=== PATIENT | female | born 1975 | race Caucasian/White ===

== ENCOUNTER → 2020-03-24 | Outpatient (CLI) | payer OTHER ==
--- NOTE | 2020-03-24 10:07 | US ---
EXAMINATION TYPE: US abdomen complete DATE OF EXAM: 03/24/2020 COMPARISON: CT May 01, 2010 CLINICAL HISTORY: RLQ pain R10.31. gallbladder removed; diabetic, smoker; right lateral abdomen pain EXAM MEASUREMENTS: Liver Length: 17.9 cm Gallbladder Wall: surgically removed CBD: 0.5 cm Spleen: 10.6 cm Right Kidney: 11.0 x 6.5 x 5.0 cm Left Kidney: 11.2 x 6.7 x 6.6 cm Pancreas: hyperechoic Liver: fatty as is hyperechoic to right renal cortex; attenuated posteriorly Evidence for sonographic Schneider's sign: no CBD: wnl Spleen: wnl Right Kidney: No hydronephrosis or masses seen Left Kidney: No hydronephrosis or masses seen Upper IVC: wnl Abd Aorta: size is wnl, intimal wall thickening is noted especially posteriorly Visualized liver remains heterogeneously hyperechoic. Evaluation for focal masses suboptimal due to t he heterogeneity. Suboptimal evaluation of pancreas and images saved due to body habitus. No hydronep hrosis in either kidney. Interval cholecystectomy noted. IMPRESSION: Marked fatty infiltration of liver remains present. No acute findings are identified.
== END | disposition home or self-care (01) ==
LOC: RADUSWWP 08:52
PROVIDERS: ATTEND Family Medicine
DX: K76.0 Fatty (change of) liver, not elsewhere classified (principal)
CPT/HCPCS: 76700

== ENCOUNTER → 2020-04-05 | Outpatient (CLI) | payer OTHER ==
--- NOTE | 2020-04-05 12:26 | US ---
EXAMINATION TYPE: US thyroid st tissue head/neck DATE OF EXAM: 04/05/2020 COMPARISON: NONE CLINICAL HISTORY: 44-year-old female E04.9 Nontoxic goiter. Thyroid nodules GLAND SIZE: Right Lobe: 5.6 x 1.8 x 2.1 cm Overall Parenchyma: Slightly heterogeneous Left Lobe: 5.0 x 1.7 x 1.8 cm Overall Parenchyma: Slightly heterogeneous Isthmus Thickness: .4 cm NODULES RIGHT: # of nodules measured on right: 0 LEFT: # of nodules measured on left: 0 ISTHMUS: # of nodules measured in the isthmus: 0 Bilateral neck scanned, no evidence of lymphadenopathy. IMPRESSION: Borderline to mild thyromegaly. Possible goiter. No discrete nodules.
--- NOTE | 2020-04-06 14:31 | MM ---
Reason for exam: screening (asymptomatic). Last mammogram was performed 9 years and 2 months ago. History: Family history of breast cancer in paternal grandmother. Taking hormonal contraceptives for 10 months. Physical Findings: A clinical breast exam by your physician is recommended on an annual basis and results should be correlated with mammographic findings. MG Screening Mammo w CAD Bilateral CC and MLO view(s) were taken. Prior study comparison: January 24, 2011, bilateral digital screening mammo w/CAD. There are scattered fibroglandular densities. No significant changes when compared with prior studies. ASSESSMENT: Benign, BI-RAD 2 RECOMMENDATION: Routine screening mammogram of both breasts in 1 year.
== END | disposition home or self-care (01) ==
LOC: RADMAMWWP 09:50
PROVIDERS: ATTEND Family Medicine
DX: Z12.31 Encounter for screening mammogram for malignant neoplasm of breast (principal); E04.9 Nontoxic goiter, unspecified
CPT/HCPCS: 76536; 77067

== ENCOUNTER 2020-04-29 06:50 | Day surgery (SDC) | payer OTHER ==
[2020-04-27 13:28] VITALS: BMI 31.8
[~2020-04-29 06:50] MED LIST: LACTATED RINGERS 1,000 ML IV SCH
[2020-04-29 07:23] LABS: Glucose,Whole Blood 191 mg/dL (75-99)
[2020-04-29 07:26] VITALS: TEMP 97.2
[2020-04-29] MEDS ORDERED: LIDOCAINE 1% (10MG/ML) FOR IV START INTRADERMA ONE (07:26)
[2020-04-29] MEDS ORDERED: PROPOFOL 10 MG/ML 20 ML VIAL IV ONE (07:44)
--- NOTE | 2020-04-29 08:01 | P.PCN ---
Date of Procedure: 04/29/20 Description of Procedure: BRIEF HISTORY: Patient is a 45-year-old female presenting evaluation of GERD. Patient currently on omeprazole therapy. She reports symptoms of breakthrough heartburn and epigastric abdominal pain. PROCEDURE PERFORMED: Esophagogastroduodenoscopy with biopsy. PREOPERATIVE DIAGNOSIS: GERD, epigastric abdominal pain. ESTIMATED BLOOD LOSS: Minimal. IV sedation per anesthesia. PROCEDURE: After informed consent was obtained, the patient was brought into the endoscopy unit. IV sedation was administered by Anesthesia under continuous monitoring. Initially the Olympus GIF-190 video endoscope was inserted into the mouth. Esophagus intubated without any difficulty. It was gradually advanced into the stomach and duodenum and carefully examined. The bulb and the second part of the duodenum appeared normal, with biopsies taken. The scope at this time was withdrawn to the stomach, adequately insufflated with air, and upon careful examination, mucosa of the antrum, body, cardia and the fundus appeared normal, except for some mild punctate erythema in the antrum and body suggestive of mild gastritis biopsy taken is some food debris retained in the stomach suggestive of possible gastroparesis. The scope was then withdrawn into the esophagus. The GE junction was located at 38 cm from the incisors and biopsied. The esophagus appeared normal. There were no erosions or ulcerations seen and the patient tolerated the procedure well. IMPRESSION: 1. Mild gastritis. 2. Small amount of retained food debris in the stomach. 3. Biopsies of the duodenum, antrum body and GE junction. RECOMMENDATIONS: The findings of this examination were discussed with the patient. Okay to resume diet. Okay to resume medications. Continue PPI therapy. Follow up in the GI clinic as scheduled. Await pathology from biopsies. Can consider gastric emptying study in the future for further evaluation, however patient without the off of narcotic therapy at that time which can cause a false positive.
[2020-04-29 08:02] VITALS: RESP 18
[2020-04-29 08:15] VITALS: BP 139/87; PULSE 84
== END 2020-04-29 08:45 | disposition home or self-care (01) ==
LOC: ORWHC2ENDO 06:50
PROVIDERS: ATTEND Internal Medicine
DX: K31.9 Disease of stomach and duodenum, unspecified (principal); K29.70 Gastritis, unspecified, without bleeding; K31.89 Other diseases of stomach and duodenum; K21.9 Gastro-esophageal reflux disease without esophagitis; I10 Essential (primary) hypertension; J45.909 Unspecified asthma, uncomplicated; E11.9 Type 2 diabetes mellitus without complications; F17.200 Nicotine dependence, unspecified, uncomplicated; Z90.49 Acquired absence of other specified parts of digestive tract; Z98.890 Other specified postprocedural states; Z79.84 Long term (current) use of oral hypoglycemic drugs; Z79.1 Long term (current) use of non-steroidal anti-inflammatories (NSAID); Z79.891 Long term (current) use of opiate analgesic; Z79.51 Long term (current) use of inhaled steroids; Z79.899 Other long term (current) drug therapy; Z88.5 Allergy status to narcotic agent; Z88.2 Allergy status to sulfonamides
CPT/HCPCS: 81025; 88305; 43239; J2704

== ENCOUNTER → 2021-09-08 | Outpatient (CLI) | payer OTHER ==
[2021-09-08 12:04] VITALS: BP 137/85; PULSE 66; RESP 18; TEMP 98.5
--- NOTE | 2021-09-08 13:36 | P.PAINPG ---
PQRS Measure Charge Sheet Comment: HISTORY OF PRESENT ILLNESS: 46 yr old female as a referral from Dr. Melvin for severe and chronic pain in the cervical, L shoulder and L side of neck secondary to disc bulges and facet arthropathy for evaluation. Patient states her pain level is currently at 8/10 in intensity, throbbing/ burning/ tingling in character that originates from the mid to lower aspect of her cervical spine with radiation to the left side of her neck towards her left shoulder. Pain is provoked with rotation of the neck, hyperextension and overhead reaching and lifting. Pain is alleviated with PT integrated with massage of which she is currently in, ice, medication (Presto, topicals by Dr Villalobos), KT tape on her L shoulder by her therapist, home stretching regimen, repositioning and rest. PT states she suffered an injury swinging a trash bag into a dumpster while at work when she felt a L shoulder "crack." PMH: CAD, Hyperlipidemia, NIDDM Type II, GERD, OA PSH: BL Eye surgery, Cholecystectomy SH: Daily tobacco use, No ETOH use, No illicit drug use. Pt is not . FH: Negative per pt All: See list Meds: See list REVIEW OF ORGAN SYSTEMS: CONSTITUTIONAL: No fevers or chills. No recent weight loss. NEUROLOGICAL: + numbness and tingling along the distal extremities. No seizure disorders or headaches. MUSCULOSKELETAL: + pain PSYCHIATRIC: Denies current depression or suicidal thoughts. Physical Examinations : Constitutional : Cooperative , not in acute distress . Neurologic : Cranial nerve II to XII intact. No focal neurological deficits. Psychiatric : alert & oriented x 3. Matching mood & appropriate affect. Judgment & insight intact. Musculoskeletal : Cervical Spine Motor strength in the deltoid and biceps: Normal right side. Normal Left side Motor strength biceps and the wrist extensors: Normal right side . Normal left side Motor strength in the triceps muscle: Normal right side. Normal left side Deep tendon reflexes: Normal at the biceps. Normal at Brachioradialis. Normal at triceps Vertebral body tenderness to deep palpation over C4, C5 Cervical facet loading test: positive bilaterally Spurling test: positive bilaterally Neck distraction test: positive L Lee sign: positive bilaterally Lumbar spine Motor strength lower extremities ,thigh and legs 5/5 Right side , 5/5 Left side Deep tendon reflexes : Normal Knee Jerk. Normal Ankle Jerk Vertebral body tenderness over Lumbar facet Loading Test: positive Right / positive Left Range of motion of the lumbar spine Flexion 30 degrees, extension 10 degrees Straight Leg Raise test: Left/ Right positive at degree Leelee test: positive right / positive left. Severe tenderness over the Sacroiliac joint on the Right / Left sides Gaenslen test: positive bilaterally Seated flexion test: positive bilaterally. Sacral spine : Severe tenderness over the Sacroiliac joint: right side / left side Range of motion: Flexion of the lumbar spine <60 degrees Range of motion: Extension of the lumbar spine <20 degrees Gaenslen's Test positive Reece's Test positive Leelee test: positive right side / left side Thigh Thrust Test Sacral Thrust Test Imaging: MRI without contrast of the cervical spine reviewed Assessment/ Plan : Cervical disc bulges Recommendation of LANEY C4-C5. May need a series of injections, up to 3 within a 6 mo period, for optimal pain relief. Risks, benefits of procedure discussed and patient verbalized understanding. Denies aspirin or anti- coagulant use. Admits to a medical history of diabetes. Protocol for discontinuation/ continuation of medications landon procedure discussed. All questions answered. I have spent greater than 30 minutes on patient care today. Dr Gomez was available by phone for the evaluation of this patient. The time was used to review the medical records including relevant urine studies and Prescription history (MAPs), review of the available imaging, evaluation and examination of the patient, coordination of care with the medical staff and if applicable referring physicians, as well as creation of the medical record Home Medications: Ambulatory Orders Albuterol Inhaler [Ventolin Hfa Inhaler] 2 puff INHALATION RT-QID PRN 04/27/20 Atorvastatin [Lipitor] 80 mg PO HS 04/27/20 Fenofibrate 160 mg PO HS 04/27/20 Fluticasone Propion/Salmeterol [Advair 250-50 Diskus] 1 inhalation PO BID 04/27/20 Glimepiride [Amaryl] 4 mg PO HS 04/27/20 HYDROcodone/APAP 7.5-325MG [Presto 7.5-325] 1 tab PO BID 04/27/20 Liraglutide [Victoza 2-Ivan] 1.2 mg SQ 1615 04/27/20 Meloxicam [Mobic] 15 mg PO HS 04/27/20 Omeprazole 80 mg PO 1600 04/27/20 Pregabalin [Lyrica] 150 mg PO BID 04/27/20 Valsartan [Diovan] 160 mg PO QAM 04/27/20 Verapamil HCl [Verapamil ER] 120 mg PO QAM 04/27/20 sitaGLIPtin PHOSPHATE [Januvia] 100 mg PO DAILY 04/27/20 tiZANidine [Zanaflex] 4 mg PO BID PRN 04/27/20 Controlled Substance Measures - Controlled Substance Measures Is patient prescribed a controlled substance at discharge?: No
== END ==
LOC: PNWHC3 10:30
PROVIDERS: ATTEND Specialist
DX: M48.02 Spinal stenosis, cervical region (principal); M50.10 Cervical disc disorder with radiculopathy, unspecified cervical region; Z88.2 Allergy status to sulfonamides; Z88.5 Allergy status to narcotic agent
CPT/HCPCS: 99211

== ENCOUNTER 2021-10-18 08:31 | Day surgery (SDC) | payer OTHER ==
[2021-10-14 15:12] VITALS: BMI 31.3
[~2021-10-18 08:31] MED LIST changes: +LIDOCAINE 1% (10MG/ML) FOR IV START INTRADERMA PRN
[2021-10-18 09:07] VITALS: TEMP 97.5
[2021-10-18] MEDS ORDERED: IOPAMIDOL M200 10 ML VIAL ONE (09:10)
[2021-10-18] MEDS ORDERED: MIDAZOLAM 2 MG/2 ML VIAL ONE (09:10)
[2021-10-18] MEDS ORDERED: fentaNYL (PF) 50 MCG/ML 2 ML AMP ONE (09:10)
[2021-10-18] MEDS ORDERED: DEXAMETHASONE SOD PHOSPHATE 10 MG/ML 1 ML VIAL ONE (09:10)
[2021-10-18 09:13] LABS: Glucose,Whole Blood 171 mg/dL (70-110)
--- NOTE | 2021-10-18 09:34 | P.PCN ---
Date of Procedure: 10/18/21 Procedure(s) Performed: . PROCEDURE 1. Cervical epidural steroid injection under fluoroscopic guidance, C4-5 (fluoroscopy images available in the radiology department ) 2. Cervical epidurogram. PREOPERATIVE DIAGNOSIS: 1- Cervical Degenerative Disc Diseases 2- Cervical radiculopathy., 3-cervical spondylosis with cervical Facet arthropathy without myelopathy POSTOPERATIVE DIAGNOSIS: : 1- Cervical Degenerative Disc Diseases , 2- Cervical radiculopathy. 3-,cervical spondylosis with cervical Facet arthropathy without myelopathy ANESTHESIA: moderate sedation, with Versed 2 mg and Fentanyl 100 mcg. Sedation start time : 09:14 Sedation end time : 09:31 EBL 0 PROCEDURE INDICATION: The patient with neck pain and radiculitis unresponsive to conservative treatment consents for procedure. PROCEDURE DESCRIPTION / TECHNIQUE: The patient was seen and identified in the preoperative area. Risks, benefits, complications, including but not limited to infections ,bleeding , allergic reactions to the medications ,and not complete pain releife, and alternatives were discussed with the patient, the patient agreed to proceed with the procedure and signed the consent. Patient was taken to the OR and time out was completed. The patient was placed in the prone position on the procedure table. A pillow was placed under the patients chest to increase the cervical interlaminar space. The cervical area was prepped and draped in the usual sterile fashion. Vital signs were closely monitored during the procedure. Conscious sedation was used during the procedure to decrease patients anxiety. Using anterior-posterior fluoroscopy, the C4-5interlaminar space was identified and the skin over this site was marked and then infiltrated with 1% lidocaine subcutaneously. Subsequently, a 20-gauge 3-1/2-inch Tuohy epidural needle was inserted and advanced toward the epidural space by means of the ``hanging-drop technique and guided by AP and lateral fluoroscopy. The correct needle position in the epidural space was verified with the injection of 2 mL of the water soluble contrast dye Isovue-200 and observing an excellent epidurogram with the epidural spread of the dye, after negative aspiration for blood and CSF and in the absence of paresthesias. then, mixture containing 15 mg Dexamethasone and 2 ml of preservative-free normal saline injected and a washout of epidurogram was seen. Needle was withdrawn intact, skin was cleansed, and bandages were applied. Complications= none. Disposition= patient was placed in supine position and transferred to the recovery room area in stable condition and there was no evidence of upper or lower extremity motor or sensory deficit after the procedure patient was discharged from recovery room after discharge criteria met and home discharge instructions was given by the staff and patient will follow with the pain clinic in 2-4 weeks
[2021-10-18] MEDS ORDERED: IV FLUID CONTINUATION 1,000 ML IV ONE (09:42)
--- NOTE | 2021-10-18 10:03 | FL ---
Fluoroscopy INDICATION: Pain FINDINGS: Fluoroscopy time: 5 seconds. Images obtained: 4. IMPRESSIONS: 1. Documentation of fluoroscopy.
[2021-10-18 10:17] VITALS: BP 139/85; PULSE 85; RESP 15
== END 2021-10-18 10:25 | disposition home or self-care (01) ==
LOC: ORPAIN 08:31
PROVIDERS: ATTEND Specialist
DX: M50.10 Cervical disc disorder with radiculopathy, unspecified cervical region (principal); M47.22 Other spondylosis with radiculopathy, cervical region; Z88.2 Allergy status to sulfonamides; Z88.3 Allergy status to other anti-infective agents; Z88.8 Allergy status to other drugs, medicaments and biological substances; Z79.51 Long term (current) use of inhaled steroids; Z79.899 Other long term (current) drug therapy; Z79.1 Long term (current) use of non-steroidal anti-inflammatories (NSAID); Z79.84 Long term (current) use of oral hypoglycemic drugs; F17.200 Nicotine dependence, unspecified, uncomplicated; Z82.49 Family history of ischemic heart disease and other diseases of the circulatory system
CPT/HCPCS: 81025; 62321; J2250; J1100; J3010; Q9966; 99152

== ENCOUNTER 2022-01-13 10:55 | Day surgery (SDC) | payer OTHER ==
[2022-01-13 11:25] VITALS: RESP 18; TEMP 96.9
[2022-01-13] MEDS ORDERED: MIDAZOLAM 2 MG/2 ML VIAL ONE (11:33)
[2022-01-13] MEDS ORDERED: fentaNYL (PF) 50 MCG/ML 2 ML AMP ONE (11:33)
[2022-01-13] MEDS ORDERED: ROPIVACAINE 5 MG/ML 20 ML AMPULE ONE (11:34)
[2022-01-13] MEDS ORDERED: methylPREDNISolone ACETATE 40 MG/ML 1 ML VIAL ONE (11:34)
[2022-01-13 11:37] LABS: Glucose,Whole Blood 110 mg/dL (70-110)
--- NOTE | 2022-01-13 11:56 | P.PCN ---
Date of Procedure: 01/13/22 Procedure(s) Performed: PREOPERATIVE DIAGNOSIS: 1-Cervical Spondylosis with Facet Arthropathy.without myelopathy. 2-cervical degenerative disc disease POSTOPERATIVE DIAGNOSIS: Same as preoperative diagnosis. PROCEDURES: Diagnostic Left C4 , C5 , and C6 medial branch blocks, with fluo roscopic guidance (fluoroscopy images available in radiology department ) ( to target the facet joint at Left C4- 5 , C5- 6 ) ANESTHESIA: Monitored anesthesia care as per anesthesia department . EBL: Minimal PROCEDURE INDICATION: The patient with neck pain secondary to cervical arthropathy unresponsive to more conservative treatments. PROCEDURE DESCRIPTION / TECHNIQUE: The patient was seen and identified in the preoperative area. Risks, benefits, complications, and alternatives were discussed with the patient, the patient agreed to proceed with the procedure and signed the consent. IV was started. Vital signs remained stable throughout the procedure. Patient was taken to the OR and time out was completed. The patient was placed in the Lateral position on the procedure table.( left side up ). The cervical area was prepped and draped in the usual sterile fashion. Critical pause was taken. Vital signs were closely monitored during the procedure. Conscious sedation was used during the procedure to decrease patients anxiety. Using cross-table lateral fluoroscopy, the centroid of the trapezoid of Left C4 , C5 and C6, was identified, marked, and localized with 1% lidocaine 1 ml at each level for skin and Sub Q infiltrations . Subsequently, a 25 G 3spinal needle was advanced guided by fluoroscopy to the centroid of the trapezoid of Left C4 , C5, C6 . [place] tip position was confirmed at the centroid of the trapezoids of Left C4 , C5 ,C6 with anteroposterior fluoroscopy. Subsequently, 1.5 ml of preservative-free Ropivacaine 0.5% mixed with Depo-Medrol 40 mg and half ml of the mixture was injected after negative aspiration for blood and CSF. [place] was then removed intact . COMPLICATIONS: No acute complications. COMMENTS: DISPOSITION / PLANS: The patient was placed in a supine position and transferred to the recovery area in a stable condition for observation and was discharged from the recovery room after meeting discharge criteria. Home discharge instructions given to the patient by the staff. The patient was reexamined prior to discharge. The patient will schedule a follow up in the clinic in 2-4 weeks.
[2022-01-13] MEDS ORDERED: IV FLUID CONTINUATION 1,000 ML IV ONE (12:01)
--- NOTE | 2022-01-13 12:07 | FL ---
Fluoroscopy History: PAIN 10 SEC FL
[2022-01-13 12:14] VITALS: BP 130/81; PULSE 71
[2022-01-13 12:24] LABS: Glucose,Whole Blood 101 mg/dL (70-110)
== END 2022-01-13 12:30 | disposition home or self-care (01) ==
LOC: ORPAIN 10:55
PROVIDERS: ATTEND Specialist
DX: M50.322 Other cervical disc degeneration at C5-C6 level (principal); M47.812 Spondylosis without myelopathy or radiculopathy, cervical region; I10 Essential (primary) hypertension; E78.5 Hyperlipidemia, unspecified; J45.909 Unspecified asthma, uncomplicated; F17.200 Nicotine dependence, unspecified, uncomplicated; G43.909 Migraine, unspecified, not intractable, without status migrainosus; K21.9 Gastro-esophageal reflux disease without esophagitis; Z79.899 Other long term (current) drug therapy; Z88.5 Allergy status to narcotic agent
CPT/HCPCS: 81025; 64490; 64491; J2250; J1030; J3010; J2795

== ENCOUNTER 2022-03-03 08:04 | Day surgery (SDC) | payer OTHER ==
[2022-03-01 15:58] VITALS: BMI 31.8
[2022-03-03 08:55] VITALS: TEMP 96.8
[2022-03-03 09:07] LABS: Glucose,Whole Blood 179 mg/dL (70-110)
[2022-03-03] MEDS ORDERED: LACTATED RINGERS 1,000 ML IV ONE ×2 (09:07→10:10)
[2022-03-03] MEDS ORDERED: MIDAZOLAM 2 MG/2 ML VIAL ONE (09:27)
[2022-03-03] MEDS ORDERED: DEXAMETHASONE SOD PHOSPHATE 10 MG/ML 1 ML VIAL ONE (09:27)
[2022-03-03] MEDS ORDERED: fentaNYL (PF) 50 MCG/ML 2 ML AMP ONE (09:27)
[2022-03-03] MEDS ORDERED: ROPIVACAINE 5 MG/ML 20 ML AMPULE ONE (09:27)
[2022-03-03] MEDS ORDERED: LACTATED RINGERS 1,000 ML IV SCH (09:30)
--- NOTE | 2022-03-03 09:55 | P.PCN ---
Date of Procedure: 03/03/22 Description of Procedure: PREOPERATIVE DIAGNOSIS: Cervical Facet syndrome /cervical spondylosis. POSTOPERATIVE DIAGNOSIS: Cervical Facet syndrome /cervical spondylosis. PROCEDURES: Left side cervical C4-C5, and C5-C6 medial branch injections, with fluoroscopic guidance, SURGEON: Nasim Harris ANESTHESIA: 3ml of Local lidocaine 1% , and IV sedation with : versed 3mg, and Fentanyl 100 mcg EBL: None Specimen removed: None Fluoroscopic image: Saved to electronic medical records. PROCEDURE INDICATION: Patient had chronic neck pain. He tried conservative therapy with minimal benefits. Came here for intervention procedure. PROCEDURE DESCRIPTION: The patient was seen and identified in the preoperative area. Risks, benefits, complications, and alternatives were discussed with the patient. The patient agreed to pursue with the procedure and signed the consent. IV was started and vital signs were stable. Patient was taken to the procedure room and time out was completed. The patient was placed in the prone position on the procedure table and cervical area was prepped with ChloraPrep 1 and draped in the usual sterile fashion. Critical pause was taken. Vital signs were closely monitored during the procedure. Using AP fluoroscopy, left side side the waists of lateral margins of C4, C5, and C6 were identified and localized with 1% lidocaine. We used 25-gauge 3-1/2 inch spinal needles 3 used for the procedure. Using the posterior approach, spinal cannulas were guided by anterior posterior fluoroscopy to the waists of the lateral masses of C4, C5, and C6. Needle tip position was confirmed close to centroid of the trapezoids of C4, C5, and C6 with lateral fluoroscopy. After negative aspiration of CSF and blood and with no paresthesias 0.5 mL of block solution injected at each site. Block solution contained 10 MG of dexamethasone and 1 mL of preservative-free ropivacaine 0.5%. [place] were removed intact. [place] removed intact. Skin was cleansed and bandages were applied. COMPLICATIONS: None. DISPOSITION / PLANS: The patient was placed in a supine position and transferred to the recovery area in a stable condition for observation and was discharged from the recovery room after meeting discharge criteria. Home discharge instructions given to the patient by the staff. The patient was reexamined prior to discharge. Scheduled to follow up with the pain clinic in 2- 4 weeks duration.
[2022-03-03 10:01] VITALS: RESP 16
[2022-03-03 10:10] VITALS: BP 133/62; PULSE 69
--- NOTE | 2022-03-03 10:17 | FL ---
EXAMINATION TYPE: FL guided pain mgmt statistic DATE OF EXAM: 03/03/2022 CLINICAL HISTORY: Neck pain. TECHNIQUE: Fluoroscopy. COMPARISON: None. FINDINGS: Fluoroscopic guidance was provided during pain relief procedure performed by Dr. Harris. A total of 32 seconds of fluoroscopic time was utilized during the procedure and 2 spot images are a cquired. Images acquired shows needle localization at several levels in the cervical spine. IMPRESSION: As Above.
== END 2022-03-03 10:27 | disposition home or self-care (01) ==
LOC: ORPAIN 08:04
DX: M47.812 Spondylosis without myelopathy or radiculopathy, cervical region (principal); G89.29 Other chronic pain; E78.00 Pure hypercholesterolemia, unspecified; E11.9 Type 2 diabetes mellitus without complications; I10 Essential (primary) hypertension; M19.90 Unspecified osteoarthritis, unspecified site; J45.909 Unspecified asthma, uncomplicated; K21.9 Gastro-esophageal reflux disease without esophagitis; Z88.2 Allergy status to sulfonamides; Z88.5 Allergy status to narcotic agent; Z88.8 Allergy status to other drugs, medicaments and biological substances; Z79.51 Long term (current) use of inhaled steroids; Z79.84 Long term (current) use of oral hypoglycemic drugs; Z79.899 Other long term (current) drug therapy
CPT/HCPCS: 81025; 64490; 64491; J2250; J1100; J3010; J2795

== ENCOUNTER → 2022-04-05 | Outpatient (CLI) | payer OTHER ==
[2022-04-05 13:17] VITALS: BP 136/57; PULSE 85; RESP 16; TEMP 98.1
--- NOTE | 2022-04-05 15:08 | P.PAINPG ---
PQRS Measure Charge Sheet Comment: A 46 yr old female with a history of severe and chronic neck pain secondary to cervical DDD and spondylosis with facet arthropathy without myelopathy presents today for evaluation s/p L facet block of the medial branches C4-C5, C5-C6 #2. Pt states she experienced 100 % pain relief x 1 hr s/p procedure. Pain level is provoked at 9 /10 in intensity, constant, localized in the cervical spine, burning, sharp in character w shooting towards the LUE. Pain is provoked by PT in Oct 2020 without relief. Pain is alleviated with home stretches daily, ice, meds (Caputa, Lyrica from Dr Fuentes), use of a cervical collar as needed, repositioning and rest. Interventional pain procedures completed include L MBB C4-C6 x2 Patient is currently on Caputa, Lyrica from Dr Fuentes Patient denies any side effects of the medication(s), denies excessive drowsiness or sleepiness, denies suicidal ideation and reports that the current pain medication is helping to control the pain and improve activities of daily living. Patient denies any motor or sensory deficits. Patient denies any fever or night sweats, denies any change in the bowel movements or urination. Physical Examination: -Constitutional: Cooperative. Not in acute distress . - Neurologic: Cranial nerve II to XII intact. No focal neurological deficits. - Psychatric: Alert & oriented x 3. Matching mood & appropriate affect. Judgment and insight intact. - Musculoskeletal: Cervical spine: Muscle bulk/ tone/ strength in the bilateral upper extremities normal Vertebral body tenderness to palpation over Spurling test positive Distraction test positive Facet loading test positive TTP over R C4-C5, C5-C6 facets Thoracic spine Muscle bulk / tone/ strength in the bilateral paraspinal muscles normal Vertebral body tender to palpation over Facet loading test positive Lumbar spine: Motor bulk/ tone/ strength lower extremities , thigh and legs : 5/5 Deep tendon reflexes : Normal Knee Jerk. Normal Ankle Jerk . Vertebral body tenderness to palpation over Lumbar Facet Loading Test positive Straight Leg Raise: positive at 30 degrees right side/ left side Gaenslen's Test positive Sacral spine : Severe tenderness over the Sacroiliac joint: right side / left side Range of motion: Flexion of the lumbar spine <60 degrees Range of motion: Extension of the lumbar spine <20 degrees Gaenslen's Test positive Leelee test: positive right side / left side Thigh Thrust Test Sacral Thrust Test Assessment and plan: Chronic neck pain secondary to cervical DDD, spondylosis with facet arthropathy without myelopathy Recommendation of R RFA C4-C5, C5-C6. Pt is disinterested in pursing an RFA at this time. She will rely on medication management and may return to our clinic on an as needed basis. All patient questions answered I have spent less than 30 minutes on patient care today. Dr Gomez was available by phone for the evaluation of this patient. The time was used to review the medical records including relevant urine studies and Prescription history (MAPs), review of the available imaging, evaluation and examination of the patient, coordination of care with the medical staff and if applicable referring physicians, as well as creation of the medical record PQRS Narrative: Hx Alcohol Use (MH) No Home Medications: Ambulatory Orders Albuterol Inhaler [Ventolin Hfa Inhaler] 2 puff INHALATION QID 04/27/20 Atorvastatin [Lipitor] 80 mg PO HS 04/27/20 Glimepiride [Amaryl] 8 mg PO HS 04/27/20 Liraglutide [Victoza 2-Ivan] 1.8 mg SQ 1615 04/27/20 Meloxicam [Mobic] 15 mg PO HS 04/27/20 Pregabalin [Lyrica] 150 mg PO BID 04/27/20 Valsartan [Diovan] 160 mg PO QAM 04/27/20 Verapamil HCl [Verapamil ER] 120 mg PO QAM 04/27/20 tiZANidine [Zanaflex] 4 mg PO BID PRN 04/27/20 Ergocalciferol [Vitamin D2 (1250 Mcg = 09062 Iu)] 1,250 mcg PO WE 10/14/21 Dulaglutide [Trulicity] 0.75 mg SQ DAILY 11/10/21 Montelukast [Singulair] 10 mg PO DAILY 11/10/21 DULoxetine HCL [Cymbalta] 30 mg PO DAILY 01/11/22 Hydrocodone/Acetaminophen [Hydrocodon-Acetaminophn 10-325] 1 each PO BID 01/11/22 Pantoprazole [Protonix] 40 mg PO DAILY 01/11/22 Pioglitazone [Actos] 45 mg PO DAILY 03/01/22 Controlled Substance Measures - Controlled Substance Measures Is patient prescribed a controlled substance at discharge?: No
== END ==
LOC: PNWHC3 10:46
PROVIDERS: ATTEND Specialist
DX: M47.812 Spondylosis without myelopathy or radiculopathy, cervical region (principal); M50.30 Other cervical disc degeneration, unspecified cervical region; Z88.5 Allergy status to narcotic agent; Z88.2 Allergy status to sulfonamides
CPT/HCPCS: 99211

== ENCOUNTER → 2022-04-07 | Outpatient (CLI) | payer OTHER ==
--- NOTE | 2022-04-07 15:34 | XR ---
EXAMINATION TYPE: XR chest 2V DATE OF EXAM: 04/07/2022 3:30 PM COMPARISON: Chest radiographs from 04/07/2013. TECHNIQUE: XR chest 2V Frontal and lateral views of the chest. CLINICAL INDICATION:Female, 46 years old with history of J449; FINDINGS: Lungs/Pleura: There is no evidence of pleural effusion, focal consolidation, or pneumothorax. Pulmonary vascularity: Unremarkable. Heart/mediastinum: Cardiomediastinal silhouette is unremarkable. Musculoskeletal: No acute osseous pathology. IMPRESSION: No acute cardiopulmonary disease/process. No significant change from prior examination.
--- NOTE | 2022-04-10 08:57 | MM ---
Reason for Exam: Screening (asymptomatic). Last mammogram was performed 2 year(s) and 0 month(s) ago. Patient History: Menarche at age 10. First Full-Term at age 19. Patient has history of breast feeding. Currently using Hormonal Contraceptives, for 10 months. Paternal grandmother had breast cancer. Risk Values: Mary Ann 5 year model risk: 0.8%. NCI Lifetime model risk: 8.3%. Prior Study Comparison: 01/24/2011 Bilateral Screening Mammogram, [facility]. 04/05/2020 Bilateral Screening Mammogram, [facility]. Tissue Density: There are scattered fibroglandular densities. Findings: Analyzed By CAD. There is no suspicious group of microcalcifications or new suspicious mass in either breast. Stable benign calcification within the right breast. Overall Assessment: Benign, BI-RAD 2 Management: Screening Mammogram of both breasts in 1 year. A clinical breast exam by your physician is recommended on an annual basis and results should be correlated with mammographic findings. Electronically signed and approved by: Mikel Cordon D.O.
== END | disposition home or self-care (01) ==
LOC: RADMAMWWP 14:50
PROVIDERS: ATTEND Family Medicine
DX: Z12.31 Encounter for screening mammogram for malignant neoplasm of breast (principal); J44.9 Chronic obstructive pulmonary disease, unspecified; Z80.3 Family history of malignant neoplasm of breast
CPT/HCPCS: 71046; 77067

== ENCOUNTER → 2022-06-01 | Outpatient (CLI) | payer OTHER ==
--- NOTE | 2022-06-01 17:05 | MR ---
EXAMINATION TYPE: MR cervical spine wo con DATE OF EXAM: 06/01/2022 INDICATION: Patient age:Female; 47 years old; Reason for study: M47.22 SPONDYLOSIS WITH RADICULOPATHY, CERVICAL R; PHH. NECK PAIN, CAN'T LIFT LT A RM, TINGLING LT ARM, INJURED AT WORK COMPARISON: None. TECHNIQUE: Multi planar, multi sequence imaging was performed utilizing: T1-weighted, T2-weighted, an d turbo inversion recovery imaging of the cervical spine. IV Contrast: None FINDINGS: Alignment: The cervical vertebral bodies have preserved heights. Alignment is within normal limits gi tano patient positioning. Bones: Bone signal is within normal limits. Multilevel mild osteophyte formation with uncovertebral f acet joint arthropathy. Cord: The spinal cord is unremarkable with regards to their signal intensity and morphology. Discs: Intervertebral disc signal is maintained. C2-C3: No significant disc pathology. The spinal canal is patent. No neural foraminal stenosis. C3-C4: No significant disc pathology. The spinal canal is patent. No neural foraminal stenosis. C4-C5: A disc osteophyte complex is present which minimally narrows the ventral subarachnoid space. No neural foraminal stenosis. C5-C6: No significant disc pathology. The spinal canal is patent. No neural foraminal stenosis. C6-C7: No significant disc pathology. The spinal canal is patent. No neural foraminal stenosis. C7-T1: No significant disc pathology. The spinal canal is patent. No neural foraminal stenosis. Other: None. IMPRESSION: 1. No evidence for disc herniation or significant spinal canal stenosis. No evidence for significant neural foraminal stenosis. The neural foramen bilaterally at levels of the cervical spine are patent. Consider MRI left shoulder for evaluation of the rotator cuff as clinically warranted. 2. Minimal disc degeneration with associated osteoarthritic changes.
== END | disposition home or self-care (01) ==
LOC: RADMRIMAIN 15:54
PROVIDERS: ATTEND Nurse Practitioner Family
DX: M47.22 Other spondylosis with radiculopathy, cervical region (principal); M50.121 Cervical disc disorder at C4-C5 level with radiculopathy; M99.71 Connective tissue and disc stenosis of intervertebral foramina of cervical region
CPT/HCPCS: 72141

== ENCOUNTER → 2022-07-10 | Outpatient (CLI) | payer OTHER ==
--- NOTE | 2022-07-10 10:33 | CA ---
Transthoracic Echo Report Name: Mindy Fernandez Age: 47 Gender: F : 1975 Exam Date: 07/10/2022 08:41 Exam Location: [place] [facility] Ht (in): 67 Wt (lb): 203 Ordering Physician: Jaxson Brown DO Attending/Referring Phys: Jaxson Brown DO Ambulance Dispatcher Nitish Block [facility] Procedure CPT: Indications: R07.9 CHEST PAIN Cardiac Hx: HTN; CP; DM; High Chol; Obesity Technical Quality: Fair Contrast 1: Total Dose (mL): Contrast 2: Total Dose (mL): MEASUREMENTS (Male / Female) Normal Values 2D ECHO LV Diastolic Diameter PLAX 4.1 cm 4.2 - 5.9 / 3.9 - 5.3 cm LV Systolic Diameter PLAX 3.0 cm LV Fractional Shortening PLAX 28.0 % IVS Diastolic Thickness 1.1 cm 0.6 - 1.0 / 0.6 - 0.9 cm IVS Systolic Thickness 1.5 cm LVPW Diastolic Thickness 1.3 cm 0.6 - 1.0 / 0.6 - 0.9 cm LVPW Systolic Thickness 1.4 cm LV Relative Wall Thickness 0.6 RV Internal Dim ED PLAX 3.0 cm LVOT Diameter 1.8 cm Aortic Root Diameter 2.3 cm LA Systolic Diameter LX 2.5 cm 3.0 - 4.0 / 2.7 - 3.8 cm LA Ao Ratio 1.1 LV Diastolic Volume MOD BP 63.1 cm??? 67 - 155 / 56 - 104 cm??? LV Systolic Volume MOD BP 30.3 cm??? 22 - 58 / 19 - 49 cm??? LV Ejection Fraction MOD BP 52.0 % >= 55 % LV Stroke Volume MOD BP 32.8 cm??? LV Diastolic Volume MOD 4C 69.1 cm??? LV Systolic Volume MOD 4C 29.5 cm??? LV Ejection Fraction MOD 4C 57.3 % LV Stroke Volume MOD 4C 39.6 cm??? LV Diastolic Length 4C 7.9 cm LV Systolic Length 4C 6.1 cm LV Diastolic Volume MOD 2C 49.6 cm??? LV Systolic Volume MOD 2C 30.5 cm??? LV Ejection Fraction MOD 2C 38.4 % LV Stroke Volume MOD 2C 19.0 cm??? LV Diastolic Length 2C 6.8 cm LV Systolic Length 2C 6.0 cm M-MODE Aortic Root Diameter MM 2.6 cm LA Systolic Diameter MM 3.3 cm LA Ao Ratio MM 1.3 MV E Point Septal Separation 0.5 cm AV Cusp Separation MM 1.4 cm DOPPLER AV Peak Velocity 183.6 cm/s AV Peak Gradient 13.5 mmHg LVOT Peak Velocity 108.6 cm/s LVOT Peak Gradient 4.7 mmHg AV Area Cont Eq pk 1.5 cm??? MV Deceleration [place] 282.3 cm/s??? Mitral E Point Velocity 66.5 cm/s Mitral A Point Velocity 73.4 cm/s Mitral E to A Ratio 0.9 MV Deceleration Time 235.6 ms MV E' Velocity 7.3 cm/s Mitral E to MV E' Ratio 9.2 TR Peak Velocity 247.5 cm/s TR Peak Gradient 24.5 mmHg Right Ventricular Systolic Press 34.5 mmHg PV Peak Velocity 109.4 cm/s PV Peak Gradient 4.8 mmHg FINDINGS Left Ventricle Left ventricular ejection fraction is estimated at 55-60%. borderline left ventricular hypertrophy. Grade 1 diastolic dysfunction. Normal systolic function. Right Ventricle Normal right ventricular size and function. RVSP- 35 mm Hg. Right Atrium Normal right atrial size. Left Atrium Mild left atrial dilatation. Mitral Valve Structurally normal mitral valve. Mild mitral regurgitation. Aortic Valve Trileaflet aortic valve. Tricuspid Valve [id number] tricuspid regurgitation. Pulmonic Valve Structurally normal pulmonic valve. Pericardium Normal pericardium. No pericardial effusion. Aorta Normal size aortic root and proximal ascending aorta. CONCLUSIONS Normal LV systolic function Mild mitral regurgitation Mild to moderate tricuspid regurgitation Mild pulmonary hypertension Previewed by: Dr. Henry Taveras MD (Electronically Signed) Final Date: 10 July 2022 10:32
--- NOTE | 2022-07-11 10:20 | CA ---
Exercise Stress Test Report Name: Mindy Fernandez Exam Date: 07/10/2022 09:33 Exam Location: [place] Stress Ht (in): 67 Wt (lb): 203 BSA: 2.03 Ordering Phys: Jaxson Brown DO Referring Phys: Jaxson Brown DO Technologist: Farooq Peguero Age: 47 Gender: F : 1975 Procedure CPT: Indications: R07.9 CHEST PAIN ICD-10 Codes: Patient History: Medications: Meds past 24 hrs: Pretest Chest Pain: STRESS TEST Stevan Protocol Exercise Duration (min:sec): 07:[address] Depressions (mm): Angina Score: Barksdale Score: Resting HR (bpm): 79 Peak HR (bpm): 158 Resting BP (mmHg): 123 / 77 Peak BP (mmHg): 168 / 106 MPHR: 171 Target HR: 145 % MPHR: 92 METS: 9.8 Total Dose: Peak Dose: Atropine: Double Product: 45579 BP Response: Stress Termination: Reached target heart rate Stress Symptoms: NO SYMPTOMS Stress Summary: ECG ANALYSIS Resting ECG: Stress ECG: CONCLUSIONS Excellent exercise tolerance Normal EKG in response to exercise Dr. Henry Taveras MD (Electronically Signed) Final Date: 11 July 2022 10:19
== END | disposition home or self-care (01) ==
LOC: RADECHMAIN 08:22
PROVIDERS: ATTEND Family Medicine
DX: I08.1 Rheumatic disorders of both mitral and tricuspid valves (principal); I27.20 Pulmonary hypertension, unspecified
CPT/HCPCS: 93017; 93306

== ENCOUNTER → 2023-01-04 | Outpatient (CLI) | payer OTHER ==
--- NOTE | 2023-01-04 19:11 | XR ---
EXAMINATION TYPE: XR chest 1V DATE OF EXAM: 01/04/2023 3:27 PM CLINICAL INDICATION:Female, 47 years old with history of PRE SURG; PHH COMPARISON: Chest radiographs from 04/07/2022 TECHNIQUE: XR chest 1V Frontal view of the chest. FINDINGS: Lungs/Pleura: There is no evidence of pleural effusion, focal consolidation, or pneumothorax. Pulmonary vascularity: Unremarkable. Heart/mediastinum: Cardiomediastinal silhouette is unremarkable. Musculoskeletal: No acute osseous pathology. Other findings: None IMPRESSION: No acute cardiopulmonary disease/process.
[2023-01-04 22:31] LABS: HCT 35.4 % (37.2-46.3); HGB 11.7 d/dL (12.0-15.0); MCHC 33.1 d/dL (32.0-37.0); MCV 87.6 FL (80.0-97.0); Mean Platelet Volume 12.6 FL (9.5-12.2); NRBC Per 100 WBC 0 X 10*3/uL (0.00-0.01); Platelet Count 175 X 10*3/uL (140-440); RBC 4.04 X 10*6/uL (4.10-5.20); RDW 12.7 % (11.5-14.5); WBC 7.26 X 10*3/uL (4.50-10.00)
[2023-01-05 01:04] LABS: ALT 36 U/L (8-44); AST 20 U/L (13-35); Alkaline Phosphatase 118 U/L (41-126); Blood Urea Nitrogen 15.2 mg/dL (9.0-27.0); Carbon Dioxide 23.8 mmol/L (21.6-31.8); Chloride 101 mmol/L (96-109); Glucose 269 mg/dL (70-110); Potassium 4.2 mmol/L (3.5-5.5); Sodium 139 mmol/L (135-145); Total Bilirubin 0.5 mg/dL (0.3-1.2)
[2023-01-05 04:11] LABS: INR 0.99 sec (0.93-1.11); Prothrombin Time 10.7 sec (9.9-11.9)
== END | disposition home or self-care (01) ==
LOC: LABPAT 14:47
PROVIDERS: ATTEND Orthopaedic Surgery
DX: Z01.812 Encounter for preprocedural laboratory examination (principal); M75.42 Impingement syndrome of left shoulder
CPT/HCPCS: 71045; 80053; 82306; 85027; 85610

== ENCOUNTER 2023-01-30 05:37 | Day surgery (SDC) | payer OTHER ==
[2023-01-25 14:27] VITALS: BMI 31.4
[2023-01-30] MEDS ORDERED: DEXAMETHASONE SOD PHOSPHATE 4 MG/ML 1 ML VIAL IV ONE (06:10)
[2023-01-30] MEDS ORDERED: LIDOCAINE 1% (10MG/ML) FOR IV START INTRADERMA PRN (06:10)
[2023-01-30] MEDS ORDERED: LACTATED RINGERS 1,000 ML IV SCH (06:10)
[2023-01-30] MEDS ORDERED: ONDANSETRON 4 MG/2 ML VIAL IVP ONE (06:10)
[2023-01-30 06:53] LABS: Glucose,Whole Blood 222 mg/dL (70-110)
--- NOTE | 2023-01-30 06:54 | P.HPOR ---
History of Present Illness H&P Date: 01/24/23 .D:Date: 01/24/23 : 04:45pm .T:Title: *[facility]... COPY... Date of :[birth year] R14 Allergies: Age: 47 year Height: 5'7" Weight: 190 lbs BP:122/75 BMI: 29.76 kg/m2 Occupation: Unemployed VAS: 8 CHIEF COMPLAINT: Re-check on neck and left upper extremity symptoms DOI: Chronic DOS: n/a Duration of current treatment regiment:> 1 year HISTORY : Xrays No new xrays taken in office today. Trauma or injury No Work-Related No Pain description Burning, sharp, & increasing Location Lateral Patient notes that their pain radiates to left shoulder and arm Activity Modification Yes Hand Dominance Right TREATMENTS COMPLETED: 6 weeks of PT completed? Month and Year of last PT date? Yes, in 10/2021 for 3 months How many sessions? Many Did it help? No Physician directed home exercise completed? Yes, Patient has trialed the physician directed home exercise program without relief of their symptoms. Medications Yes, List: Kelford, Lyrica Alternative interventions Chiropractic:No Massage therapy:Yes R.I.C.E:yes Brace:No Injections Yes How many? 3 Did they help?No RFA:No, patient refused SUBJECTIVE: Ms. Fernandez returns to the office for a pre-operative evaluation preceding her left shoulder arthroscopy. Patient continues to report a burning sensation within her left shoulder that radiates into the left upper extremity associated with swelling of the left hand and numbness. The patient notes significant weakness throughout the left shoulder and upper extremity. She reports decreased range of motion of the left shoulder. The patient notes that her pain increases with all movement of the left arm, which makes it very difficult for her to complete any of her activities of daily living. She is currently wearing a ling on her left arm. She notes that allowing the left arm to dangle on it's own causes her significant discomfort. The patient reports experiencing severe sleep disturbances related to her ongoing pain and associated symptoms. The patient has trialed conservative treatment measures in the form of physical therapy, at home stretches/exercises, at home heat/ice therapies, massage therapy, activity modification, medication management, and cervical epidural steroid injections. The patient has not experienced any significant or sustained relief from any conservative treatment measures thus far. The patient denies trialing any other modalities at this time. The patient is currently taking Kelford and Lyrica for relief of her symptoms. Otherwise the patient denies any f/c/sob/cp and ambulates independently today. HISTORY: Ms. Fernandez returns to the office for re-evaluation of her left shoulder and left shoulder MRI results. Since her last visit patient reports no changes to her symptoms. The patient reports continued pain throughout the left shoulder down into the biceps, forearm, and hand. The patient described the pain as sharp, shooting, and severe. The patient notes significant weakness throughout the left shoulder and upper extremity. Se notes continued numbness and tingling throughout the bilateral upper extremities. She reports decreased range of motion of the left shoulder. The patient notes that her pain increases with all movement of the left arm, which makes it very difficult for her to complete any of her activities of daily living. She notes that she is always holding the left arm up with the right hand, as it is only comfortable in a supported position. She notes that allowing the left arm to dangle on it's own causes her significant discomfort. The patient reports experiencing severe sleep disturbances related to her ongoing pain and associated symptoms. The patient has trialed conservative treatment measures in the form of physical therapy, at home stretches/exercises, at home heat/ice therapies, massage therapy, activity modification, medication management, and cervical epidural steroid injections. The patient has not experienced any significant or sustained relief from any conservative treatment measures thus far. The patient denies trialing any other modalities at this time. The patient is currently taking Kelford for relief of her symptoms. Otherwise the patient denies any f/c/sob/cp and ambulates independently today. The patients' past social, medical, family, surgical history, as well as review of systems, have been reviewed. Please refer to the Neurosurgery History and Physical form that has been scanned in to our electronic medical record system. 14 points review of systems completed and as stated in HPI, all other systems reviewed are negative. Social History: Reviewed, see appropriate section of the chart for details. P3 Family History: Reviewed, see appropriate section of the chart for details. P2 Past Medical History: Reviewed, see appropriate section of the chart for deta ils. [id number] Medications: Rx: fenofibrate 160 mg tablet Ref: 0 Rx: glimepiride 4 mg tablet Ref: 0 Rx: Jardiance Ref: 0 Rx: Lipitor 40 mg tablet Ref: 0 Rx: Lyrica Ref: 0 Rx: Kelford 7.5 mg-325 mg tablet Ref: 0 Rx: Cymbalta Ref: 0 P1 PHYSICAL EXAMINATION: General:Awake, alert, appropriate for age, in no acute distress. HEENT:No unusual neck masses around region of lateral neck triangle, thyroid, supraclavicular groove Heart:Regular rate and rhythm, normal S1, S2 and no murmur/gallop. Lungs:Clear to auscultation bilaterally with no use of accessory muscles. Extremities:Skin warm and dry without acute lesions, coloration, temperature, skin intact, no tenderness or erythema Integument: Hairy patches:ABSENT Dorsal skin dimples:ABSENT Cafe au lait spots:ABSENT Palpation: Please see Pain drawing on Intake sheet for further detail. Midline spinal tenderness: No E6 Cervical Tenderness: Yes, laterality left E6 Paralumbar tenderness: No E6 Parathoracic tenderness: No E6 Buttocks tenderness: No E6 Sacroiliac Tenderness: No POSTURAL and MUSCULO-SKELETAL EVALUATION: Coronal Balance: NEUTRAL Recumbent testing:Patient isable to lay flat on back Sagittal Balance:NEUTRAL Shoulder Profile:LEVEL Pelvic Girdle:LEVEL Neck ROM:RESTRICTED Lumbar ROM:UNRESTRICTED Shoulder ROM:Symmetrical Hip ROM:Symmetrical Knee ROM:Symmetrical Hands:Normal appearance, Symmetrical Feet:Normal appearance, Symmetrical VASCULAR STATUS : LEFT RIGHT Wrist Pulses INTACT INTACT Pedal Pulses (Dors. pedis & post.tibialis) INTACT INTACT Color NORMAL NORMAL Edema Absent Absent NEUROLOGIC EXAMINATION: Mental Status:Awake and alert, fully oriented, with normal attention, concentration and memory, and fluent, appropriate speech. Cranial Nerves: I: Olfactory not tested. II: Visual acuity normal, no visual field deficit noted with confrontation. III,IV: Normal pupillary reflexes & intact extraocular movements without nystagmus. V,: Intact symmetrical facial sensation. VII: Intact symmetrical facial motor movement VIII: Hearing intact. IX,X: Intact gag, swallow, & normal voice. XI: Sternocleidomastoid, trapezius function intact. XII: Tongue midline with normal movements. L'hermitte's Sign:Negative / absent Spurling'Sign:Absent bilaterally. Cubital percussion test:Absent bilaterally. Beatty-Tinel sign - Carpal region:Absent bilaterally. Straight Leg Raising:Absent bilaterally. Crossed straight leg raise:negative O8 MOTOR EXAM (0-5/5, N/T Muscle appearance: Symmetrical, without signs of atrophy or dystrophy UPPER EXTREMITY RIGHT LEFT Shoulder Abduction 5/5 3+/5 Biceps 5/5 3+/5 Triceps 5/5 3+/5 Wrist Extension 5/5 4/5 Hand Intrinsic 5/5 4/5 Director Religious Education 5/5 4-/5 LOWER EXTREMITY RIGHT LEFT Hip Flexion 5/5 5/5 Knee Extension 5/5 5/5 Knee Flexion 5/5 5/5 Dorsiflexion 5/5 5/5 Plantarflexion 5/5 5/5 EHL 5/5 5/5 FHL 5/5 5/5 Toe heel walk / heel-toe walk intact while maintaining satisfactory balance? yes Squatting/straightening w/o assistance to a min of 60 degree knee flexion? yes Single leg stance:intact Trendelenburg sign negative bilaterally REFLEXES(0-4/2, NT)Upper ExtremityLower Extremity Right 2 2 Left 2 2 Pathological Reflexes RIGHT LEFT Beatty's Absent Absent Clonus Absent Absent Babinski Absent Absent Sensory system (0-4, N/T) Test type RU GETACHEW RL LL Joint-Position 2 2 2 2 Vibration 2 2 2 2 Pain & LT sense 2 2 2 2 Dermatomal Deficit: None None None None Gait and Functional Evaluation: Ambulatory aids: Independent Romberg's test:Intact bilaterally Steady Gait RADIOGRAPHIC STUDIES: [facility]: Type II slap tear left shoulder with fraying of the labrum and glenoid cartilage Bicep tendonitis with fuid at interval Subacromial spurring noted RC inact for now. Interval slightly larger No fractures No lesions Mild effusion IMPRESSION: It was my pleasure to have seen and examined Mindy. I reviewed the patient's clinical syndrome, physical findings, and imaging studies during the appointment today. It is my impression that the patient has a diagnosis of. 1. Left shoulder SLAP grade 2 tear 2.Internal impingement 3. Subacromial bursitis I outlined the natural course history without intervention and various i nterventional options. PLAN: Based on my findings I suggest the following course of action: -I discussed treatment options with the patient, including operative and non- operative options, and they have elected to proceed with the following surgical procedure: Left shoulder arthroscopy with labral debridement, biceps tenotomy vs tenodesis, subacromial decompression The indications, risks, benefits, and alternatives to surgery were discussed with the patient at length. Specifically (but not limited to) the risks of infection, stiffness, recurrence of symptoms, need for revision surgery, local numbness, neurovascular injury, and blood clots were discussed. The patient's questions were answered. The decision to proceed was made. Consent will be obtained for the procedure. -Ambulate daily -Take medications as directed -Ice and rest for pain and swelling control. Follow-up: DEL Post procedure 1month 6wks 3 months 6 months 1 year Patient Education: (Informational booklet, instructions, etc) given at today's appointment: DEL Yes .ED:Patient Education: Y Medications Reviewed: YES In our visit today Ms. Fernandez and I have had a chance to go over my understanding of the patient's current condition, the natural course history without intervention and various interventional options. Questions were invited and answered, and the patient wishes to proceed as outlined above. I will be sure to keep you updated afterMs. Fernandez returns here for further follow-up. Thank you again for your referral. Please do not hesitate to contact me if you have any further questions. Signed and authenticated by: MARY GRACE Kohler [facility] [address] [place] [id number] This message is confidential, intended only for the named recipient(s) and may contain information that is privileged or exempt from disclosure under applicable law. If you are not the intended recipient(s), you are notified that the dissemination, distribution or copying of this information is strictly prohibited. If you received this message in error, please notify the sender then delete this message. Patient verbalizes understanding of the information discussed. The above note was initiated by Jaylan Summers, physician recording program support assistant for Dr. Kevin Reed. This note has been reviewed by Dr. Reed, who has made his personal changes and impressions for this document. CC: Jaxson Brown D.O. Past Medical History Past Medical History: Asthma, Diabetes Mellitus, GERD/Reflux, Hypertension, Osteoarthritis (OA) Additional Past Medical History / Comment(s): Occasional abdominal pain, migraines. Injury from work causing neck and left shoulder pain, severe nerve damage C6-C7. , heart murmur, hx of enlarged heart (left), back pain. History of Any Multi-Drug Resistant Organisms: None Reported Past Surgical History: Cholecystectomy Additional Past Surgical History / Comment(s): Left eye surgery at age 1 and 10, EGD, pain clinic procedures. Past Anesthesia/Blood Transfusion Reactions: Previous Problems w/ Anesthesia, Postoperative Nausea & Vomiting (PONV) Past Psychological History: Anxiety, Depression Smoking Status: Former smoker, Vaper Past Alcohol Use History: None Reported Additional Past Alcohol Use History / Comment(s): quit smoking 6 months ago- now vapes., Started smoking at age 13, hx of 1ppd. Past Drug Use History: None Reported - Past Family History Mother Additional Family Medical History / Comment(s): Aortic aneurysm. Father Family Medical History: Cancer Medications and Allergies Home Medications Medication Instructions Recorded Confirmed Type Atorvastatin [Lipitor] 80 mg PO HS 04/27/20 01/25/23 History Liraglutide [Victoza 2-Ivan] 1.8 mg SQ 1615 04/27/20 01/25/23 History Meloxicam [Mobic] 15 mg PO HS 04/27/20 01/25/23 History Pregabalin [Lyrica] 150 mg PO TID 04/27/20 01/25/23 History Verapamil HCl [Verapamil ER] 120 mg PO QAM 04/27/20 01/25/23 History Ergocalciferol [Vitamin D2 (1250 1,250 mcg PO WE 10/14/21 01/25/23 History Mcg = 14184 Iu)] Montelukast [Singulair] 10 mg PO HS 11/10/21 01/25/23 History Hydrocodone/Acetaminophen 1 each PO BID PRN 01/11/22 01/25/23 History [Hydrocodon-Acetaminophn 10-325] Pantoprazole [Protonix] 40 mg PO DAILY 01/11/22 01/25/23 History Pioglitazone [Actos] 45 mg PO DAILY 03/01/22 01/25/23 History DULoxetine HCL [Cymbalta] 60 mg PO HS 01/25/23 01/25/23 History Fluticasone/Umeclidin/Vilanter 1 puff INHALATION DAILY 01/25/23 01/25/23 History [Trelegy Ellipta 200-62.5-25] Insulin Detemir [Levemir Flexpen] 25 units SQ HS 01/25/23 01/25/23 History Isosorbide Mononitrate ER [Imdur] 30 mg PO DAILY 01/25/23 01/25/23 History Rimegepant Sulfate [Nurtec Odt] 75 mg PO DIRECTED PRN 01/25/23 01/25/23 History Valsartan [Diovan] 320 mg PO QAM 01/25/23 01/25/23 History polyethylene glycoL 3350 [Miralax] 17 gm PO DAILY PRN 01/25/23 01/25/23 History Allergies Allergy/AdvReac Type Severity Reaction Status Date / Time codeine Allergy Nausea & Verified 01/30/23 06:18 Vomiting propoxyphene Allergy Anaphylaxis Verified 01/30/23 06:18 [From Darvocet-N] sulfamethoxazole Allergy Anaphylaxis Verified 01/30/23 06:18 [From Bactrim] trimethoprim [From Bactrim] Allergy Anaphylaxis Verified 01/30/23 06:18 Physical Examination Osteopathic Statement: *. No significant issues noted on an osteopathic structural exam other than those noted in the History and Physical/Consult. Results - Labs Labs: Abnormal Lab Results - Last 24 Hours (Table) 01/30/23 Range/Units 06:42 POC Glucose (mg/dL) 222 H (70-110) mg/dL
[2023-01-30] MEDS ORDERED: fentaNYL (PF) 50 MCG/ML 2 ML AMP IVP ONE (06:58)
[2023-01-30] MEDS ORDERED: MIDAZOLAM 2 MG/2 ML VIAL IV PRN (07:00)
[2023-01-30] MEDS ORDERED: HYDROmorphone 0.5 MG/0.5 ML SYRINGE IVP PRN (07:00)
[2023-01-30 07:09] VITALS: TEMP 97.3
[2023-01-30] MEDS ORDERED: INSULIN ASPART (NovoLOG) 100 UNIT/ML VIAL SQ ONE (07:10)
[2023-01-30] MEDS ORDERED: fentaNYL (PF) 50 MCG/ML 2 ML AMP ONE (07:22)
[2023-01-30] MEDS ORDERED: PHENYLEPHRINE-0.9% NACL SYG 1,000 MCG/10 ML SYRINGE ONE (07:22)
[2023-01-30] MEDS ORDERED: ePHEDrine 50 MG/ML 1 ML VIAL ONE (07:22)
[2023-01-30] MEDS ORDERED: LIDOCAINE 1% INJ 10MG/ML (20 ML MDV) ONE (07:22)
[2023-01-30] MEDS ORDERED: SUCCINYLCHOLINE CHLORIDE 200 MG/10 ML VIAL IV ONE (07:22)
[2023-01-30] MEDS ORDERED: PHENYLEPHRINE 10 MG/ML VIAL ONE (07:22)
[2023-01-30] MEDS ORDERED: VASOPRESSIN 20 UNIT/ML 1 ML VIAL ONE (07:22)
[2023-01-30] MEDS ORDERED: WATER FOR INJECTION, STERILE 10 ML VIAL IV ONE (07:22)
[2023-01-30] MEDS ORDERED: ROPIVACAINE 5 MG/ML 30 ML VIAL ONE (07:22)
[2023-01-30] MEDS ORDERED: PROPOFOL 10 MG/ML 20 ML VIAL IV ONE (07:22)
[2023-01-30] MEDS ORDERED: LIDOCAINE 1%-EPI 1:100,000 20 ML VIAL ONE (07:22)
[2023-01-30] MEDS ORDERED: EPINEPHrine (PF) 1 ML in SODIUM CHLORIDE 0.9% IRRIGATIO 3,000 ML IRRIGATION ONE ×7 (08:03→08:04)
--- NOTE | 2023-01-30 08:33 | P.ANPRN ---
Procedure Note - Anesthesia - Nerve Block Performed Left Interscalene Single Time Out Performed: Yes Date of Procedure: 01/30/23 Procedure Start Time: 06:58 Procedure Stop Time: 07:08 Location of Patient: PreOp Indication: Acute Post-Operative Pain, Requested by Surgeon Sedation Type: Sedate with meaningful contact maintained Preparation: Sterile Prep Position: Supine Needle Types: Pajunk Needle Gauge: 21 Ultrasound used to visualize needle placement: Yes Ultrasound used to observe medication spread: Yes Injectate: 0.5% Ropivacaine (see comment for volume) (15 ml + Lidocain 1 % with epi 1/100 K 15 ml) Adjunct: Epinephrine (see comment for dilution ratio) Blood Aspirated: No Pain Paresthesia on Injection Noted: No Resistance on Injection: Normal Image Stored and Saved: Yes Events: Uneventful and Well Tolerated
[2023-01-30] MEDS ORDERED: LACTATED RINGERS 1,000 ML IV ONE (08:34)
[2023-01-30 09:01] LABS: Glucose,Whole Blood 234 mg/dL (70-110)
[2023-01-30 10:04] LABS: Glucose,Whole Blood 222 mg/dL (70-110)
[2023-01-30] MEDS ORDERED: oxyCODONE-APAP 5-325MG 1 EACH TAB ONE (11:27)
[2023-01-30] MEDS ORDERED: oxyCODONE-APAP 5-325MG 1 EACH TAB PO ONE (11:28)
[2023-01-30 11:29] VITALS: RESP 18
[2023-01-30 11:54] VITALS: BP 147/94; PULSE 100
--- NOTE | 2023-01-31 14:02 | P.OP ---
Date of Procedure: 01/30/23 Preoperative Diagnosis: 1. LEFT SHOULDER PAIN, IMPINGMENT, LABRAL TEAR 2. INTERNAL DERRANGEMENT LEFT SHOULDER 3. LEFT SHOULDER STIFFNESS. Postoperative Diagnosis: 1. LEFT SHOULDER PAIN, IMPINGMENT, LABRAL TEAR 2. INTERNAL DERRANGEMENT LEFT SHOULDER 3. LEFT SHOULDER STIFFNESS. Procedure(s) Performed: 1. LEFT SHOULDER ARTHROSCOPY 2. LEFT BICEP TENODESIS 3. LEFT SHOULDER BANKART REPAIR 4. LEFT SHOULDER SUBACROMIAL DECOMPRESSION Implants: ARTHREX ALL INSIDE BICEP TENODESIS ARTHREX LABARL KNOTLESS ANCHORS X2 Anesthesia: GETA Surgeon: Kevin Reed Environmental Health And Safety Manager #1: Javon Giron (WAS PRESENT AND ASSISTED WITH ALL ASPECTS OF THE CASE FROM POSITIONING TO CLOSURE) Estimated Blood Loss (ml): 10 IV fluids (ml): 1,200 Urine output (ml): 0 Pathology: none sent Condition: stable Disposition: PACU Indications for Procedure: SUBJECTIVE: Ms. Fernandez returns to the office for a pre-operative evaluation preceding her left shoulder arthroscopy. Patient continues to report a burning sensation within her left shoulder that radiates into the left upper extremity associated with swelling of the left hand and numbness. The patient notes significant weakness throughout the left shoulder and upper extremity. She reports decreased range of motion of the left shoulder. The patient notes that her pain increases with all movement of the left arm, which makes it very difficult for her to complete any of her activities of daily living. She is currently wearing a ling on her left arm. She notes that allowing the left arm to dangle on it's own causes her significant discomfort. The patient reports experiencing severe sleep disturbances related to her ongoing pain and associated symptoms. The patient has trialed conservative treatment measures in the form of physical therapy, at home stretches/exercises, at home heat/ice therapies, massage therapy, activity modification, medication management, and cervical epidural steroid injections. The patient has not experienced any significant or sustained relief from any conservative treatment measures thus far. The patient denies trialing any other modalities at this time. The patient is currently taking Crab Orchard and Lyrica for relief of her symptoms. Otherwise the patient denies any f/c/sob/cp and amb ulates independently today. HISTORY: Ms. Fernandez returns to the office for re-evaluation of her left shoulder and left shoulder MRI results. Since her last visit patient reports no changes to her symptoms. The patient reports continued pain throughout the left shoulder down into the biceps, forearm, and hand. The patient described the pain as sharp, shooting, and severe. The patient notes significant weakness throughout the left shoulder and upper extremity. Se notes continued numbness and tingling throughout the bilateral upper extremities. She reports decreased range of motion of the left shoulder. The patient notes that her pain increases with all movement of the left arm, which makes it very difficult for her to complete any of her activities of daily living. She notes that she is always holding the left arm up with the right hand, as it is only comfortable in a supported position. She notes that allowing the left arm to dangle on it's own causes her significant discomfort. The patient reports experiencing severe sleep disturbances related to her ongoing pain and associated symptoms. The patient has trialed conservative treatment measures in the form of physical therapy, at home stretches/exercises, at home heat/ice therapies, massage therapy, activity modification, medication management, and cervical epidural steroid injections. The patient has not experienced any significant or sustained relief from any conservative treatment measures thus far. The patient denies trialing any other modalities at this time. The patient is currently taking Crab Orchard for relief of her symptoms. Otherwise the patient denies any f/c/sob/cp and ambulates independentl y today. The patients' past social, medical, family, surgical history, as well as review of systems, have been reviewed. Please refer to the Neurosurgery History and Physical form that has been scanned in to our electronic medical record system. 14 points review of systems completed and as stated in HPI, all other systems reviewed are negative. Social History: Reviewed, see appropriate section of the chart for details. P3 Family History: Reviewed, see appropriate section of the chart for details. P2 Past Medical History: Reviewed, see appropriate section of the chart for details. A1Lltjvar Medications: Rx: fenofibrate 160 mg tablet Ref: 0 Rx: glimepiride 4 mg tablet Ref: 0 Rx: Jardiance Ref: 0 Rx: Lipitor 40 mg tablet Ref: 0 Rx: Lyrica Ref: 0 Rx: Crab Orchard 7.5 mg-325 mg tablet Ref: 0 Rx: Cymbalta Ref: 0 P1 PHYSICAL EXAMINATION: General:Awake, alert, appropriate for age, in no acute distress. HEENT:No unusual neck masses around region of lateral neck triangle, thyroid, supraclavicular groove Heart:Regular rate and rhythm, normal S1, S2 and no murmur/gallop. Lungs:Clear to auscultation bilaterally with no use of accessory muscles. Extremities:Skin warm and dry without acute lesions, coloration, temperature, skin intact, no tenderness or erythema Integument: Hairy patches:ABSENT Dorsal skin dimples:ABSENT Cafe au lait spots:ABSENT Palpation: Please see Pain drawing on Intake sheet for further detail. Midline spinal tenderness: No E6 Cervical Tenderness: Yes, laterality left E6 Paralumbar tenderness: No E6 Parathoracic tenderness: No E6 Buttocks tenderness: No E6 Sacroiliac Tenderness: No POSTURAL and MUSCULO-SKELETAL EVALUATION: Coronal Balance: NEUTRAL Recumbent testing:Patient isable to lay flat on back Sagittal Balance:NEUTRAL Shoulder Profile:LEVEL Pelvic Girdle:LEVEL Neck ROM:RESTRICTED Lumbar ROM:UNRESTRICTED Shoulder ROM:Symmetrical Hip ROM:Symmetrical Knee ROM:Symmetrical Hands:Normal appearance, Symmetrical Feet:Normal appearance, Symmetrical VASCULAR STATUS : LEFTRIGHT Wrist Pulses INTACT INTACT Pedal Pulses (Dors. pedis & post.tibialis) INTACT INTACT Color NORMAL NORMAL Edema Absent Absent NEUROLOGIC EXAMINATION: Mental Status:Awake and alert, fully oriented, with normal attention, concentration and memory, and fluent, appropriate speech. Cranial Nerves: I: Olfactory not tested. II: Visual acuity normal, no visual field deficit noted with confrontation. III,IV: Normal pupillary reflexes & intact extraocular movements without nystagmus. V,: Intact symmetrical facial sensation. VII: Intact symmetrical facial motor movement VIII: Hearing intact. IX,X: Intact gag, swallow, & normal voice. XI: Sternocleidomastoid, trapezius function intact. XII: Tongue midline with normal movements. L'hermitte's Sign:Negative / absent Spurling'Sign:Absent bilaterally. Cubital percussion test:Absent bilaterally. Beatty-Tinel sign - Carpal region:Absent bilaterally. Straight Leg Raising:Absent bilaterally. Crossed straight leg raise:negative O8 MOTOR EXAM (0-5/5, N/T Muscle appearance: Symmetrical, without signs of atrophy or dystrophy UPPER EXTREMITY RIGHT LEFT Shoulder Abduction 5/5 3+/5 Biceps 5/5 3+/5 Triceps 5/5 3+/5 Wrist Extension 5/5 4/5 Hand Intrinsic 5/5 4/5 Queen Producer 5/5 4-/5 LOWER EXTREMITY RIGHT LEFT Hip Flexion 5/5 5/5 Knee Extension 5/5 5/5 Knee Flexion 5/5 5/5 Dorsiflexion 5/5 5/5 Plantarflexion 5/5 5/5 EHL 5/5 5/5 FHL 5/5 5/5 Toe heel walk / heel-toe walk intact while maintaining satisfactory balance? yes Squatting/straightening w/o assistance to a min of 60 degree knee flexion? yes Single leg stance:intact Trendelenburg sign negative bilaterally REFLEXES(0-4/2, NT)Upper ExtremityLower Extremity Right 2 2 Left 2 2 Pathological Reflexes RIGHT LEFT Beatty's Absent Absent Clonus Absent Absent Babinski Absent Absent Sensory system (0-4, N/T) Test type RU GETACHEW RL LL Joint-Position 2 2 2 2 Vibration 2 2 2 2 Pain & LT sense 2 2 2 2 Dermatomal Deficit: None None None None Gait and Functional Evaluation: Ambulatory aids: Independent Romberg's test:Intact bilaterally Steady Gait RADIOGRAPHIC STUDIES: [facility] left shoulder: Type II slap tear left shoulder with fraying of the labrum and glenoid cartilage Bicep tendonitis with fuid at interval Subacromial spurring noted RC inact for now. Interval slightly larger No fractures No lesions Mild effusion IMPRESSION: It was my pleasure to have seen and examined Mindy. I reviewed the patient's clinical syndrome, physical findings, and imaging studies during the appointment today. It is my impression that the patient has a diagnosis of. 1. Left shoulder SLAP grade 2 tear 2.Internal impingement 3. Subacromial bursitis I outlined the natural course history without intervention and various interventional options. PLAN: Based on my findings I suggest the following course of action: -I discussed treatment options with the patient, including operative and non- operative options, and they have elected to proceed with the following surgical procedure: Left shoulder arthroscopy with labral debridement, biceps tenotomy vs tenodesis, subacromial decompression The indications, risks, benefits, and alternatives to surgery were discussed with the patient at length. Specifically (but not limited to) the risks of infection, stiffness, recurrence of symptoms, need for revision surgery, local numbness, neurovascular injury, and blood clots were discussed. The patient's questions were answered. The decision to proceed was made. Consent will be obtained for the procedure. Description of Procedure: The patient was seen and examined in the preoperative area. All preoperative protocols were followed. Informed consent was obtained risks and benefits of the procedure were discussed at length. Risks including bleeding infection damage to the surrounding tissue and risk of reoperation were discussed with the patient. Risk of anesthesia up to and including was a discussed with the patient. These are outlined in the risk reviewed. They were willing to accept these risks and all of the risks of surgery. The patient was given a weight-based dose of antibiotics in the form of 2 g Ancef. The patient was seen and evaluated by the anesthesia team who deemed them fit for surgery. The site was marked, the patient was willing to proceed with the procedure. The patient was transferred to the operative suite by the Department of anesthesia. There were then drifted off to sleep by the department of anesthesia and GETA anesthesia was used. Once adequate anesthesia had been obtained the patient was carefully transferred to the operative bed. All bony prominences were padded accordingly. SCDs were placed on the nonoperative lower extremities. Arms were well padded. Patient was then placed in a head chopper and was placed in the beachchair position. The left arm was exposed the right arm was well-padded and placed on a brown. Pillow was placed in the patient's legs and she was secured to the table with a strap. Preoperative briefing was done with the operative team and everyone was ready for the procedure to start. The patients left upper extremity was then prepped and draped in the normal sterile fashion. Timeout was then performed and all parties in agreement with the procedure to be performed. The shoulder was marked out and a posterior standard portal was made using a 11 blade blunt trocar was then used to access the glenohumeral joint once in the joint the camera was placed and the joint was insufflated with water. Diagnostic arthroscopy ensued there was notable fraying and tearing of the superior and anterior labrum there is a Bankart lesion anteriorly and inferiorly along with a superior labral tear. Biceps tendinitis was noted as well with fairly discrete irritation of the biceps tendon. There is minimal glenohumeral arthritic change. The rotator cuff on the underside was intact. We then proceeded with biceps tenodesis with an all inside technique using Arthrex. Te notomy was performed after last sewing the bicep tendon with the Arthrex tenodesis kit the bicep was then placed in the bicipital groove using an awl and a tenodesis screw. Once this was placed it was tested and was stable. We then proceeded to debridement of the labrum using a shaver this was followed by testing of the labrum. The anterior Bankart type lesion was somewhat unstable and so it was elected to fix this using suture anchors. 2 suture anchors were placed in the anterior inferior glenoid and a 45 degree angle. This was done using Arthrex his guide these were drilled and then placed. Lasso was then taken around the labrum and the knotless suture anchor was then used to cinch down the labrum to the anterior glenoid along with a small amount of capsule which was taken with this as well for a standard Bankart type repair. Once this was accomplished it was tested in range of motion and was relatively stable. The remainder of the superior labrum was cleaned up using a shaver as well as the biceps tendon stock. We then accessed subacromially and performed a subacromial decompression bursectomy as well as osteophytectomy. Shaver and ArthroCare wand were used to remove the bursal tissue the rotator cuff was intact without any tears. There was however spurring on the underside of the AC joint as well as the acromion acromioplasty was performed using a high-speed bur. The distal clavicle and AC joint were carefully burred to allow for motion. This is on the underside. There is good mobility within the AC joint still. We then performed meticulous hemostasis inspected the area and took pictures. There is good subacromial decompression. No issues arose in the case the patient tolerated it very well the wounds were then cleaned and dressed. 2- 0 nylon was placed within the skin approximated the wound was very well was then cleaned and dressed sterilely with Adaptic 4 x 4's ABDs and tape. The patient was then transferred back to their hospital bed. There were awakened by department of anesthesia having tolerated the procedure very well with no complications. The patient was then transported to the postoperative care unit in stable condition.
== END 2023-01-30 12:18 | disposition home or self-care (01) ==
LOC: OR 05:37
PROVIDERS: ATTEND Orthopaedic Surgery
DX: S43.432A Superior glenoid labrum lesion of left shoulder, initial encounter (principal); M75.42 Impingement syndrome of left shoulder; M75.52 Bursitis of left shoulder; M19.90 Unspecified osteoarthritis, unspecified site; E11.9 Type 2 diabetes mellitus without complications; K21.9 Gastro-esophageal reflux disease without esophagitis; J45.909 Unspecified asthma, uncomplicated; I10 Essential (primary) hypertension; F41.9 Anxiety disorder, unspecified; F32.A Depression, unspecified; Z88.1 Allergy status to other antibiotic agents; Z79.4 Long term (current) use of insulin; Z87.891 Personal history of nicotine dependence; Z79.84 Long term (current) use of oral hypoglycemic drugs; Z88.2 Allergy status to sulfonamides; Z90.49 Acquired absence of other specified parts of digestive tract; X58.XXXA Exposure to other specified factors, initial encounter
CPT/HCPCS: 29826; 29828; 64415; 81025; C1713 ×3; J2250; J0330; J0690; J2405; J0171; J2001; J3010; J2795; J2704; J2371 ×2

== ENCOUNTER → 2023-07-17 | Outpatient (CLI) | payer OTHER ==
--- NOTE | 2023-07-17 13:57 | MM ---
Reason for Exam: Clinical finding. Last mammogram was performed 1 year(s) and 3 month(s) ago. Indicated Problems: Lump or thickening of the right side for 1 Week(s). Patient History: Menarche at age 10. First Full-Term at age 19. Postmenopausal. Patient has history of breast feeding. Hormonal Contraceptives for 10 months. Paternal grandmother had breast cancer. Risk Values: Mary Ann 5 year model risk: 0.9%. NCI Lifetime model risk: 8.0%. Prior Study Comparison: 01/24/2011 Bilateral Screening Mammogram, [facility]. 04/05/2020 Bilateral Screening Mammogram, [facility]. 04/07/2022 Bilateral MG screening mammo w CAD, [facility]. Tissue Density: There are scattered areas of fibroglandular density. Findings: Analyzed By CAD. The pattern is symmetrical. Significant interval change is evident. No suspicious mammographic abnormality at the palpable marker outer right breast. No suspicious groups of microcalcifications, spiculated or lobular masses, architectural distortion or other secondary signs of malignancy are mammographically apparent. Overall Assessment: Benign, BI-RAD 2 Management: Diagnostic Breast Ultrasound of the right breast. A negative mammogram report should not preclude additional follow up of suspicious palpable abnormalities. Patient should continue monthly self breast exam. A clinical breast exam by your physician is recommended on an annual basis and results should be correlated with mammographic findings. Note on Mary Ann scores and lifetime risk: 1. A Mary Ann score greater than 3% is considered moderate risk. If this is the case, consider specialist referral to assess eligibility for a risk reducing agent. 2. If overall lifetime risk for the development of breast cancer is 20% or higher, the patient may qualify for future screening with alternating mammogram and breast MRI. Electronically signed and approved by: Estuardo Khan D.O. Radiologis
--- NOTE | 2023-07-17 14:16 | USB ---
Reason for Exam: Clinical finding. Patient History: Menarche at age 10. First Full-Term at age 19. Postmenopausal. Patient has history of breast feeding. Hormonal Contraceptives for 10 months. Paternal grandmother had breast cancer. Risk Values: Mary Ann 5 year model risk: 0.9%. NCI Lifetime model risk: 8.0%. Technique: Method: Targeted. Prior Study Comparison: 01/24/2011 Bilateral Screening Mammogram, [facility]. 04/05/2020 Bilateral Screening Mammogram, [facility]. 04/07/2022 Bilateral MG screening mammo w CAD, [facility]. Findings: The area of palpable concern of the right breast, the axilla of the right breast and the retroareolar of the right breast were scanned. No solid or cystic masses are identified. In the axilla there are lymph nodes without thickened cortex. Largest cortex is 0.26 cm. Normal less than 0.3 cm. Overall Assessment: Benign, BI-RAD 2 Management: Screening Mammogram of both breasts in 1 year. A clinical breast exam by your physician is recommended on an annual basis and results should be correlated with mammographic findings. This exam should not preclude additional follow-up of suspicious palpable abnormalities. Results were given to the patient verbally at the time of exam. Electronically signed and approved by: Estuardo Khan D.O. Radiologis
== END | disposition home or self-care (01) ==
LOC: RADMAMWWP 13:08
PROVIDERS: ATTEND Family Medicine
DX: N63.10 Unspecified lump in the right breast, unspecified quadrant (principal); Z78.0 Asymptomatic menopausal state; Z80.3 Family history of malignant neoplasm of breast
CPT/HCPCS: 77066; 76642; G0279; 77062

== ENCOUNTER → 2023-10-10 | Outpatient (CLI) | payer OTHER | END | disposition home or self-care (01) | LOC: LABPAT 12:05 | PROVIDERS: ATTEND Orthopaedic Surgery | DX: Z01.812 Encounter for preprocedural laboratory examination (principal); M50.10 Cervical disc disorder with radiculopathy, unspecified cervical region; Z22.322 Carrier or suspected carrier of Methicillin resistant Staphylococcus aureus | CPT/HCPCS: 36415; 86850; 86900; 86901; 87070 ==

== ENCOUNTER → 2024-03-20 | Outpatient (CLI) | payer MEDICARE, OTHER ==
--- NOTE | 2024-03-20 10:59 | MR ---
EXAMINATION TYPE: MR cervical spine wo con DATE OF EXAM: 03/20/2024 7:29 AM COMPARISON: 06/01/2022 CLINICAL INDICATION: Female, 48 years old with history of M48.02 C SPINAL STENOSIS M62.81 MUSCLE WEAK M54.2, Neck pain, numbness and tingling into left arm IV Contrast: cc (None if empty) TECHNIQUE: Multiplanar, multisequence images of the cervical spine were acquired without contrast. Findings: The craniovertebral junction relationships and prevertebral soft tissues are normal. The cervical vertebral segments are normal in height and alignment and there is no fracture or sublux ation. The disc spaces are well preserved in height and there is no significant degenerative disc disease. T here is no cervical disc herniation. Cervical spinal canal is widely patent and there is no cervical stenosis. The cervical cord is normal in size and signal intensity. There is mild to moderate neural foraminal stenosis at C4-5 bilaterally. IMPRESSION: 1. No cervical spine fracture or malalignment. 2. No significant degenerative disc disease. 3. No cervical disc herniation or cervical stenosis. 4. Mild to moderate neural foraminal stenosis at the C4-5 level bilaterally which has progressed mild ly in the interval compared to the prior study. [facility], Workstation: [id number], 03/20/2024 10:57 AM
--- NOTE | 2024-03-20 12:37 | CT ---
EXAMINATION TYPE: CT cervical spine wo con CT DLP: 838.30 mGycm, Automated exposure control for dose reduction was used. DATE OF EXAM: 03/20/2024 7:42 AM COMPARISON: MR cervical spine 03/20/2024, 06/01/2022. CLINICAL INDICATION:Female, 48 years old with history of M48.02 C SPINAL STENOSIS M62.81 MUSCLE WEAK M54.2; PHH, spinal stenosis, neck pain TECHNIQUE: Axial CT images from the skull base to the inferior aspect of T2 we obtained without intra venous contrast. Coronal and sagittal reformatted images were also reviewed. FINDINGS: Fracture: None. Osseous structures: Multilevel degenerative disc disease changes with disc space narrowing, endplate sclerosis, and anterior osteophytosis. Vertebral alignment: No spondylolisthesis. Straightening of the cervical spine which may be due to pa tient position versus muscle spasm. Spinal canal/Neural Foramina: No CT evidence of significant spinal canal narrowing. No CT evidence fo r significant neural foraminal stenosis. Neck soft tissues: Prevertebral soft tissues are within normal limits. Other: The airway is patent. The lung apices are clear. IMPRESSION: 1. No evidence of cervical spine fracture. 2. Minimal multilevel degenerative disc disease. [facility], , 03/20/2024 12:35 PM
== END | disposition home or self-care (01) ==
LOC: RADMRIMAIN 06:50
PROVIDERS: ATTEND Orthopaedic Surgery
DX: M48.02 Spinal stenosis, cervical region (principal); M50.30 Other cervical disc degeneration, unspecified cervical region; M99.71 Connective tissue and disc stenosis of intervertebral foramina of cervical region
CPT/HCPCS: 72125; 72141

== ENCOUNTER → 2024-05-22 | Outpatient (CLI) | payer MEDICARE, OTHER | END | disposition home or self-care (01) | LOC: LABPAT 12:25 | PROVIDERS: ATTEND Orthopaedic Surgery | DX: Z01.812 Encounter for preprocedural laboratory examination (principal); Z22.322 Carrier or suspected carrier of Methicillin resistant Staphylococcus aureus; M47.22 Other spondylosis with radiculopathy, cervical region | CPT/HCPCS: 36415; 86850; 86900; 86901; 87070 ==

== ENCOUNTER 2024-05-29 13:10 | Day surgery (SDC) | payer MEDICARE, OTHER ==
--- NOTE | 2024-05-29 11:54 | P.HPOR ---
History of Present Illness H&P Date: 05/22/24 .D:Date: 05/22/24 : 12:01pm .T:Title: [facility] H&P DEMOGRAPHICS: Age: 49 year Height: 5'7" Weight: 231 lbs BP:120/70 BMI: 36.18 kg/m2 Occupation: Disability CC: cervical pain VAS: 9 HISTORY: Ms. Fernandez presents to the office today, 05/22/24, for a Pre-Op appt for her scheduled procedure of C3-C5 anterior cervical discectomy and fusion on 05/29/2024. Patient's questions and concerns have been discussed and addressed. Patient reports pain across the base of her neck that radiates into the bilateral upper extremities down to the fingers.She describes this pain as stabbing, throbbing, and burning. She notes limited range of motion of the neck in both up/down and right/left motions. Patient is having night time sleep disturbances that make it difficult for her to fall asleep and stay asleep. Patient has previously trialed physical therapy and steroid injections with no relief. She is currently taking Manila and Lyrica without resolution of her symptoms. Patient ambulates independently. * Patient denies any f/c/sob/cp, perineal numbness or tingling, bowel, or bladder incontinence/retention. * The patients past social, medical, family, surgical history, as well as review of systems, have been reviewed. Please refer to the History and Physical form that has been scanned into our electronic medical record system. * 16 points review of systems completed and as stated in HPI, all other systems reviewed are negative. PAST TREATMENTS: PAST IMAGING: -YES, MRI and xray - TRAUMA RELATED: -YES, work injury - WORK RELATED: -YES - PT IN LAST 6 MONTHS: -YES, no relief - PHYSICIAN DIRECTED HOME EXERCISE PROGRAM: -YES, no improvement - ACTIVITY MODIFICAITON: -YES, EXTENSIVE. CANNOT DO ALL ADLS DUE TO PAIN AND DEBILITY - MEDICATIONS: -YES, Manila - ALTERNATIVE INTERVENTIONS (CHIROPRACTIC, ACCUPUNCTURE, MASSAGE, RICE): -YES - BRACING: -YES INJECTIONS (LUZ MARIA, TF, RFA): -YES, luz maria, facet block, RFA. none helped - MEDICAL HISTORY: Past Medical History: REVIEWED STATED IN CHART Past Surgical History: REVIEWED STATED IN CHART Social History: REVIEWED STATED IN CHART SMOKING: Never smoker ETOH: None SUBSTANCES: None Family History: REVIEWED STATED IN CHART P1 Current Medications: Rx: Lipitor 40 mg tablet Ref: 0 Instructions: take 1 tablet (40 mg) by oral route once daily Rx: Lyrica Ref: 0 Instructions: 2 twice daily Rx: Manila 7.5 mg-325 mg tablet Ref: 0 Instructions: take 1 tablet by oral route every twice daily as needed for pain Rx: Cymbalta Ref: 0 Instructions: 80 mg Rx: Levemir U-100 Insulin Ref: 0 Instructions: 2.5 UNITS AT NIGHT Rx: Mobic Ref: 0 Rx: pantoprazole Ref: 0 Rx: valsartan Ref: 0 Rx: verapamiL Ref: 0 Rx: Victoza 3-Ivan 0.6 mg/0.1 mL (18 mg/3 mL) subcutaneous pen injector Ref: 0 Instructions: inject 1.8 mg by subcutaneous route once daily Rx: isosorbide mononitrate Ref: 0 Rx: Trulicity Ref: 0 Rx: cyclobenzaprine 5 mg tablet Ref: 0 Instructions: TAKE ONE TABLET BY MOUTH THREE TIMES A DAY P1 PHYSICAL EXAM: General: AOX3, NAD, Well hydrate, well nourished, in no acute distress HEENT: No lumps or masses Extremities: No color changes, no pooling INTEGUMENT: Appearance: Normal color and turgor Surgical Incisions: N/A Hairy Patches: ABSENT Dorsal Skin Dimples: Normal [employer] spots: ABSENT PALPATION: TTP Midline: YES Paracervical: YES Parathoracic: NO Paralumbar: NO SIJ TESTING (Aurelia's, FABER4, Compression, Distraction, Thigh Thrust, Hip Thrust): Not tested POSTURAL BALANCE: Coronal: BALANCED Sagittal: BALANCED Shoulder height: LEVEL Pelvic Girdle: LEVEL ROM AND APPEARANCE: Neck: RESTRICTED with pain Lumbar: UNRESTRICTED Shoulders: Symmetrical Hips: Symmetrical Knees: Symmetrical Hands: Symmetrical Feet: Symmetrical VASCULAR STATUS: PALPABLE PULSES B/L UE AND LE 2/4 RAD/ULNAR/DP/PT Edema: NONE NEUROLOGICAL EXAMINATION: Mental Status: Awake, alert, fully oriented with normal attention, concentration, and memory. Fluent appropriate speech. CRANIAL NERVES: I: Olfactory not assessed. II: Visual acuity normal, no visual field deficit noted with confrontation. III, IV: Normal pupillary reflexes & intact extraocular movements without nystagmus. V, : Intact symmetrical facial sensation. VII: Intact symmetrical facial motor movement: Hearing intact. IX, X: Intact gag, swallow, & normal voice. XI: Sternocleidomastoid, trapezius function intact. XII: Tongue midline with normal movements. TENSIONING: * L'HERMITTE'S SIG:NEG SPURLUNG'S SIGN:Positive UPPER EXTREMITY TENSIONING SIGNS: NEG CUBITAL TUNNEL COMPRESSION:NEG TINELS AT WRIST:NEG STRAIGH LEG RAISE:NEG CONTRALATERAL STRAIGHT LEG RAISE: NEG MOTOR EXAM (0-5/5, NT) Muscle appearance: Symmetrical, without signs of atrophy or dystrophy UPPER EXTREMITY RIGHT LEFT Shoulder Abduction 4 4 Biceps 4 4 Triceps 4 4- Wrist Extension 4 4- Hand Intrinsics 4 3 Butcher 4 3 LOWER EXTREMITY RIGHT LEFT Hip Flexion 5 5 Knee Extension 5 5 Knee Flexion 5 5 Dorsiflexion 5 5 Plantarflexion 5 5 EHL 5 5 FHL 4+ 5 REFLEXES (0-4/2, NT): RIGHT LEFT Bicep 2 2 Brachioradialis 2 2 Triceps 2 2 Patellar 2 2 Achilles 2 2 PATHOLOGICAL REFLEXES: RIGHT LEFT TAM'S PRESENT ABSENT CLONUS ABSENT ABSENT BABINSKI ABSENT ABSENT RECTAL TONE: INTACT/NT SENSATION (0-4, NT): Sensation intact to LT and Pain * C5-T1 distribution BUE * L2-S2 distribution BLE *Exceptions below* DERMATOMAL DEFICIT/RADICULAR PATTERN: C5-7 GAIT AND FUNCTIONAL EVALUATION: AMBULATORY AID NONE ROMBERG'S TEST INTACT HAND AND FINGER DEXTERITY INTACT NO DYSDIADOCHOKINESIA EXAM NEG B/L NO TOE/HEEL WALK INTACT WITH GOOD BALANCE NO SQUAT AND RISE W/O ASSISTANCE TO 60 DEG KNEE FLEXION NO SINGLE LEG STANCE Painful, not able [place] NEG IMAGING: XRay Cervical multiview (Lateral, Flexion, Extension, AP, Oblique) 6 views taken at [facility] on 05/31/22: Spondylosis with HNP at C3-6 with moderate to severe stenosis along with disc height collapse, facet arthropathy and osteophyte formation. No fractures or lesions. CT Date: 03/20/24 Location: [facility] Region: CERVICAL Contrast: N IMAGES ARE REVIEWED WITH THE PATIENT IN OFFICE AND DEMONSTRATE THE FOLLOWING: FINDINGS: * C3-4 AND C4-5 SPONDYLOSIS WITH DISC HEIGHT LOSS C3-4 AND C4-5 DDD WITH FACET ARTHROSIS MODERATE MODERATE CENTRAL AND FORAMINAL STENOSIS AT THESE LEVELS ANTERIOR OSTEOPHTYES PRESENT NO FRACTURES OR LESIONS C0-1 AND C1-2 STABLE MRI Date: 03/20/24 Location: [facility] Region: Cervical Contrast: N IMAGES ARE REVIEWED WITH THE PATIENT IN OFFICE AND DEMONSTRATE THE FOLLOWING: FINDINGS: * C3-4 C4-5 SPONDYLOSIS WITH DDD DEGENERATIVE COLLAPSE OF THESE LEVELS THAT IS MODERATE MODERATE CENTRAL AND FORAMINAL STENOSIS NO LESIONS NO FRACTURES. IMPRESSION: It was my pleasure to have seen and examined Mindy. I reviewed the patient's clinical syndrome, physical findings, and imaging studies during the appointment today. It is my impression that the patient has a diagnosis of. 1.C3-5 spondylosis with stenosis 2.Left upper extremity radiculopathy 3.Left upper extremity weakness PLAN: DISCUSSION: -I have discussed with the patient their clinical signs and symptoms, imaging, and treatment options. We have discussed risks, benefits, potential outcomes and natural course as pertains top their issues. The patient understands and would like to proceed as follows below: SURGICAL RECOMMENDATION -C3-5 ACDF THERAPIES -Cont. with home exercises and home PT exercises as able -Cont. with Heat/Ice as warranted -Cont. with supplementation Vit D, Vit C, Ca2+, High protein diet -OK for massage or other alternative treatment modalities as able. If it exacerbates your sx do not continue ACTIVITY - -NO LIFTING BENDING TWISTING PUSHING PULLING GREATER THAN -20lbs -Recommend walking up to 30 min 2x daily on a flat easy surface with good support. -WORK STATUS: N/A MEDICATIONS -Take as directed -Cont. home medications as directed by your PCP. Check with your PCP for any medication interactions or issues if needed. IMAGING -N/A INJECTIONS -N/A Spine Surgery Risk Review Ms. Fernandez is presenting for evaluation of cervical pain. It was my pleasure to have seen and examined Ms. Fernandez. In our visit today we have had a chance to go over subjective complaints, physical examination findings and treatments including the natural course history without intervention and various interventional options. The patients imaging demonstrates: XRay Cervical multiview (Lateral, Flexion, Extension, AP, Oblique) 6 views taken at [facility] on 05/31/22: Spondylosis with HNP at C3-6 with moderate to severe stenosis along with disc height collapse, facet arthropathy and osteophyte formation. No fractures or lesions. CT Date: 03/20/24 Location: [facility] Region: CERVICAL Contrast: N IMAGES ARE REVIEWED WITH THE PATIENT IN OFFICE AND DEMONSTRATE THE FOLLOWING: FINDINGS: * C3-4 AND C4-5 SPONDYLOSIS WITH DISC HEIGHT LOSS C3-4 AND C4-5 DDD WITH FACET ARTHROSIS MODERATE MODERATE CENTRAL AND FORAMINAL STENOSIS AT THESE LEVELS ANTERIOR OSTEOPHTYES PRESENT NO FRACTURES OR LESIONS C0-1 AND C1-2 STABLE MRI Date: 03/20/24 Location: [facility] Region: Cervical Contrast: N IMAGES ARE REVIEWED WITH THE PATIENT IN OFFICE AND DEMONSTRATE THE FOLLOWING: FINDINGS: * C3-4 C4-5 SPONDYLOSIS WITH DDD DEGENERATIVE COLLAPSE OF THESE LEVELS THAT IS MODERATE MODERATE CENTRAL AND FORAMINAL STENOSIS NO LESIONS NO FRACTURES. On physical exam, Ms. Fernandez demonstrates: Patient reports pain across the base of her neck that radiates into the bilateral upper extremities down to the fingers.She describes this pain as stabbing, throbbing, and burning. She notes limited range of motion of the neck in both up/down and right/left motions. Patient is having night time sleep disturbances that make it difficult for her to fall asleep and stay asleep. Patient has previously trialed physical therapy and steroid injections with no relief. She is currently taking Manila and Lyrica without resolution of her symptoms. Patient ambulates independently. I have explained to the patient that as their condition progresses it will cause further neurological deficits and eventual paralysis. Based on the patients imaging, physical exam, and the rapid progression and disabling nature of their symptoms, at this time I recommend surgery in the form of a: C3-5 ACDF. I discussed the risk and benefits of this procedure at length with Ms. Fernandez. The patient [significant other] agreed to considered pursuing the procedure abovementioned. Prior to surgery, she should follow up with her PCP (Cardio, ID, IM etc) for clearance. Questions were invited and answered, and the patient wishes to proceed as outlined below. Currently, I am recommendin.C3-5 ANTERIOR CERVICAL DISCECTOMY AND FUSION 2.Follow up with PCP for surgical clearance 3.Review of surgical risks and benefits as well as an educational packet on the proposed surgical procedure. Risks: All surgical procedures come with inherent risks, including those related to positioning, anesthesia, intraoperative findings, and postoperative complications. It is important to understand that surgery does not come with any guarantee of a successful outcome as complications and adverse events are always possible. The patient was given a handout in office today discussing the surgical procedure and risks associated with the intervention, both of which were discussed with the patient. These risks include but are not limited to the following: * Experiencing same, different or even worse symptoms in back, neck, arms, or legs compared to before surgery. Requiring further surgery or other forms of treatment presently or at some time in the future at same or other levels of the intended spine surgery. On an extreme but fortunately relatively rare basis severe complication such as blindness, stroke, heart attack, temporary and/or permanent nerve injury, paralysis, coma, or may occur, sometimes without known explanation. Surgical complications may include but are not limited to risk of infection, fluid accumulation in the surgical dissection site, including a s eroma or hematoma, that requires additional surgery, wound drainage, bleeding, new numbness or weakness, vision changes/loss, spinal fluid leakage, non-healing and/or infected incision, headaches, difficulty or inability to swallow, hoarseness, hemopneumothorax, pneumothorax, impotence, retrograde ejaculation, vaginal dryness; injury to nerves, spinal cord, blood vessels, lymphatics or other vital organs (i.e., bowel injury, injury to the great vessels); heterotopic bone formation; complications related to the hardware such as screws, rods, cages including misplaced hardware, device failure, i nstrumentation at the wrong spine level, hardware fracture/breakage, or hardware loosening; vertebral failure of the spinal column above or below the newly placed hardware; retained surgical instrumentations or devices and the need for further surgery. * Medical risks of the planned spine surgery include but are not limited to generalized Infections to the whole body or local areas outside of the surgical site (sepsis), heart attack, bleeding, anaphylaxis, meningitis, seizure, epilepsy, hearing loss, burn james, laceration of the head or other areas of the body, bruising, hypersensitivity of the skin, bladder over distension; allergic reaction; shoulder injury related to positioning; fat, blood and air clots to other areas of the body like heart, lungs, brain; failure of internal organs such as lungs, kidneys, liver and excessive bleeding. If blood transfusions are necessary, note that transfusions may cause intolerance reactions such as anaphylaxis or other complex reactions. Despite best efforts, the results of spine surgery might not heal in terms of bone, soft tissues such as skin, fascia, ligaments, and joints. Additionally, in order to achieve best possible results, spine surgery may be carried out beyond the initially planned levels and involve decompression, fusion including insertion of hardware at levels other than the original intended area of surgical interest change some portions of the procedure in order to ensure the best possible outcomes. With spine surgery and spinal fusion, there are different off label uses of instrumentation (devices, implants and hardware) as well as biological substances (bone morphogenic proteins, demineralized bone matrix) as well as using extra bone from allograft sources (i.e. cadaver bone) or autograft (iliac crest bone, ribs, or the spine itself). The patient has been given information about these practices and their inherent risks and benefits. [facility] is an educational center that serves as a training facility for neurosurgical and orthopedic COIN MACHINE COLLECTOR SUPERVISOR and Nursing students. Physician assistants are medically trained surgical providers who function in the outpatient, inpatient, and operating room setting under the direct supervision of the attending surgeon. [facility] has multiple operating rooms with single and overlapping rooms running daily. They currently function under the required guidelines as produced by the [facility] Finance Committee with regards to the overlapping rooms and will continue to comply with changes to this policy as they occur. The requirements include and are complied with as follows: (1) the critical portions of the overlapping rooms will not occur at the same time, (2) the attending physician will be physically present during the critical portions of the procedure and immediately available during the entire case, and (3) a back-up attending is designated should the primary attending not be immediately available. The patient has had a chance to review all the listed information, has been given print outs detailing this information, and has had all his/her questions answered to their satisfaction. It was my pleasure to have seen and examined Ms. Fernandez. In our visit today we have had a chance to go over my understanding of our patient's current condition, the natural course history without intervention and various interventional options. Questions were invited and answered, and the patient wishes to proceed as outlined above. I have seen and examined the patient for 25 minutes and we have spent more than 50% of the time in repeat and detailed counseling about the patient's condition, its natural course history with out and as much as can be predicted with surgery and re-review of various surgical treatment options. In conclusion, Ms. Fernandez and requested we proceed with the above suggested surgery and are willing to accept risks and limitations of the suggested surgery as nature of the disease process and our best attempts at treatment for the condition. MEDICAL NECESSITY: Ms. 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 Her condition significantly impacts her activities of daily living and sleep quality. Despite extensive conservative management including physical therapy, medication management (Manila and Lyrica), and multiple injection therapies (LUZ MARIA, facet blocks, RFA), she continues to experience progressive symptoms. Imaging studies demonstrate significant C3-5 spondylosis with moderate to severe stenosis, disc height collapse, and foraminal narrowing, correlating with her clinical presentation and neurological deficits. SURGICAL RATIONALE: Given the patient's failed response to comprehensive conservative management, progressive neurological deficits (particularly the left upper extremity weakness and positive Tam's sign indicating myelopathy), and corresponding imaging findings of significant cervical stenosis at C3-5, surgical intervention via anterior cervical discectomy and fusion (ACDF) is medically necessary. The goal of surgery is to decompress the neural elements, stabilize the cervical spine, prevent further neurological deterioration, and provide symptomatic relief. Without surgical intervention, the patient is at risk for continued neurological decline and potential permanent disability. The proposed C3-5 ACDF procedure addresses the pathological levels identified on imaging and correlates with her clinical symptoms. FOLLOW UP: 2 WEEK POST-OP PLAN AT NEXT VISIT: ASSESMENT PATIENT EDUCATION: Medications Reviewed: YES In our visit today Ms. Fernandez and I have had a chance to go over my understanding of the patient's current condition, the natural course history without intervention and various interventional options. Questions were invited and answered, and the patient wishes to proceed as outlined above. I will be sure to keep you updated after Ms. Fernandez returns here for further follow-up. Thank you again for your referral. Please do not hesitate to contact me if you have any further questions. Signed and authenticated by: Agustina Ayala MSN, PLACEMENT ASSISTANT-C [facility] [address] . This message is confidential, intended only for the named recipient(s) and may contain information that is privileged or exempt from disclosure under applicable law. If you are not the intended recipient(s), you are notified that the dissemination, distribution or copying of this information is prohibited. If you received this message in error, please notify the sender then delete this message. Rx: cyclobenzaprine 5 mg tablet, 40, Ref: 0, take one tablet three times a day as needed for muscle spasm and stiffness # SIGNED BY SUZETTE Robb, Nurse Practitioner (STO)05/23/2024 10:39AM Past Medical History Past Medical History: Asthma, Chest Pain / Angina, Diabetes Mellitus, GERD/Reflux, Hyperlipidemia, Hypertension, Liver Disease Additional Past Medical History / Comment(s): hx migraines, hx of work injury- severe nerve damage C6-C7, herniated discs, fatty liver disease, limited rom with nerve damage- left shoulder manipulation May 2023. History of Any Multi-Drug Resistant Organisms: None Reported Past Surgical History: Cholecystectomy, Orthopedic Surgery Additional Past Surgical History / Comment(s): Left eye surgery at age 1 and 10, EGD, pain clinic procedures, left shoulder surg, left shoulder manipulation Past Anesthesia/Blood Transfusion Reactions: Postoperative Nausea & Vomiting (P ONV) Additional Past Anesthesia/Blood Transfusion Reaction / Comment(s): no problems with recent surgeries Smoking Status: Former smoker, Vaper - Past Family History Mother Additional Family Medical History / Comment(s): Aortic aneurysm. Father Family Medical History: Cancer Medications and Allergies Home Medications Medication Instructions Recorded Confirmed Type Atorvastatin [Lipitor] 80 mg PO HS 04/27/20 05/23/24 History Meloxicam [Mobic] 15 mg PO HS 04/27/20 05/23/24 History Pregabalin [Lyrica] 150 mg PO TID 04/27/20 05/23/24 History Montelukast [Singulair] 10 mg PO HS 11/10/21 05/23/24 History Pantoprazole [Protonix] 40 mg PO QAM 01/11/22 05/23/24 History Pioglitazone [Actos] 45 mg PO DAILY 03/01/22 05/23/24 History DULoxetine HCL [Cymbalta] 60 mg PO DAILY 01/25/23 05/23/24 History Fluticasone/Umeclidin/Vilanter 1 puff INHALATION QAM 01/25/23 05/23/24 History [Trelegy Ellipta 200-62.5-25] Insulin Detemir [Levemir Flexpen] 25 units SQ HS 01/25/23 05/23/24 History Isosorbide Mononitrate ER [Imdur] 30 mg PO QAM 01/25/23 05/23/24 History Rimegepant Sulfate [Nurtec Odt] 75 mg PO DIRECTED PRN 01/25/23 05/23/24 History Valsartan [Diovan] 320 mg PO QAM 01/25/23 05/23/24 History Dulaglutide [Trulicity] 0.75 mg SQ FR 10/16/23 05/23/24 History Cyclobenzaprine [Flexeril] 5 mg PO BID PRN 05/23/24 05/23/24 History Estrogen,Con/M-Progest Acet 1 each PO DAILY 05/23/24 05/23/24 History [Prempro 0.625-2.5 mg Tablet] HYDROcodone/APAP 10-325MG [Manila 1 tab PO TID PRN 05/23/24 05/23/24 History 10-325] Linaclotide [Linzess] 145 mcg PO DAILY 05/23/24 05/23/24 History Allergies Allergy/AdvReac Type Severity Reaction Status Date / Time codeine Allergy Nausea & Verified 05/23/24 15:36 Vomiting propoxyphene Allergy Anaphylaxis Verified 05/23/24 15:36 [From Darvocet-N] sulfamethoxazole Allergy Anaphylaxis Verified 05/23/24 15:36 [From Bactrim] trimethoprim [From Bactrim] Allergy Anaphylaxis Verified 05/23/24 15:36 Physical Examination Osteopathic Statement: *. No significant issues noted on an osteopathic structural exam other than those noted in the History and Physical/Consult.
[~2024-05-29 13:10] MED LIST changes: -LACTATED RINGERS 1,000 ML IV SCH; +MIDAZOLAM 2 MG/2 ML VIAL IV PRN; +ONDANSETRON 4 MG/2 ML VIAL IVP PRN; +TRANEXAMIC 1,000 MG/100ML-NACL 1,000 MG in SALINE 1 100ML.BAG IVPB PRN; +fentaNYL (PF) 50 MCG/ML 2 ML AMP IVP PRN
[2024-05-29] MEDS: LACTATED RINGERS 1,000 ML IV ONE ×2 (13:37→13:46)
[2024-05-29 13:50] LABS: Glucose,Whole Blood 228 mg/dL (70-110)
[2024-05-29] MEDS: LACTATED RINGERS 1,000 ML IV SCH ×2 (13:58→14:08)
[2024-05-29] MEDS: ACETAMINOPHEN TAB 500 MG TAB PO PRN (13:59)
[2024-05-29] MEDS: GABAPENTIN 300 MG CAP PO PRN (13:59)
[2024-05-29] MEDS: ONDANSETRON 4 MG/2 ML VIAL IVP ONE (14:00)
[2024-05-29] MEDS: DEXAMETHASONE SOD PHOSPHATE 4 MG/ML 1 ML VIAL IV ONE (14:03)
[2024-05-29] MEDS: INSULIN LISPRO (HumaLOG) 100 UNIT/ML 10 mL VL SQ ONE (14:11)
[2024-05-29] MEDS ORDERED: GLYCOPYRROLATE 0.2 MG/ML 2 ML VIAL ONE (14:29)
[2024-05-29] MEDS ORDERED: PHENYLEPHRINE-0.9% NACL SYG 1,000 MCG/10 ML SYRINGE ONE (14:29)
[2024-05-29] MEDS ORDERED: PROPOFOL 10 MG/ML 20 ML VIAL IV ONE (14:29)
[2024-05-29] MEDS ORDERED: SUCCINYLCHOLINE CHLORIDE 200 MG/10 ML VIAL IV ONE (14:29)
[2024-05-29] MEDS ORDERED: ROCURONIUM 10 MG/ML (5 ML VIAL) IV ONE (14:29)
[2024-05-29] MEDS ORDERED: KETAMINE HCL IN 0.9 % NACL 50 MG/5 ML SYRINGE ONE (14:29)
[2024-05-29] MEDS ORDERED: NEOSTIGMINE 1 MG/ML 10 ML VIAL ONE (14:29)
[2024-05-29] MEDS ORDERED: LIDOCAINE 1% INJ 10MG/ML (20 ML MDV) ONE (14:29)
[2024-05-29] MEDS ORDERED: fentaNYL (PF) 50 MCG/ML 2 ML AMP ONE (14:29)
[2024-05-29] MEDS ORDERED: HYDROmorphone (PF) 1 MG/ML ONE (14:29)
[2024-05-29] MEDS ORDERED: MIDAZOLAM 2 MG/2 ML VIAL ONE (14:29)
[2024-05-29] MEDS: THROMBIN (BOVINE) 5,000 UNIT VIAL MISCELLANE ONE (15:23)
[2024-05-29 15:50] LABS: Glucose,Whole Blood 143 mg/dL (70-110)
[2024-05-29] MEDS ORDERED: CYCLOBENZAPRINE 10 MG TAB PO PRN (16:26)
[2024-05-29] MEDS ORDERED: HYDROmorphone 0.5 MG/0.5 ML SYRINGE IVP PRN (16:26)
[2024-05-29] MEDS ORDERED: ONDANSETRON 4 MG/2 ML VIAL IVP PRN (16:26)
[2024-05-29] MEDS ORDERED: HYDROmorphone 1 MG/ML 1 ML SYRINGE IVP PRN (16:26)
--- NOTE | 2024-05-29 16:33 | FL ---
EXAMINATION TYPE: FL guidance operating room, XR cervical spine limited DATE OF EXAM: 05/29/2024 4:26 PM COMPARISON: Pre Operative Images if available both CT/MRI or plain film CLINICAL INDICATION: Female, 49 years old with history of C3-C5 Fusion; TECHNIQUE: FL guidance operating room, XR cervical spine limited, multiple fluoroscopic images provid ed for procedure. DAP: 1.2925 mGym2 Gycm2 uGym2 cGycm2 or equivalent. FINDINGS: Fluoroscopic images during internal fixation demonstrate hardware in appropriate position. Hardware a ppears intact. No immediate complication identified. IMPRESSION: 1. No evidence for intraoperative complication. 2. Please see the operative/procedural note for further details. [facility], , 05/29/2024 4:31 PM
[2024-05-29 16:48] LABS: Glucose,Whole Blood 153 mg/dL (70-110)
--- NOTE | 2024-05-29 16:51 | P.OP ---
Date of Procedure: 05/29/24 Preoperative Diagnosis: 1.C3-5 spondylosis with stenosis 2.Left upper extremity radiculopathy 3.Left upper extremity weakness Postoperative Diagnosis: 1.C3-5 spondylosis with stenosis 2.Left upper extremity radiculopathy 3.Left upper extremity weakness Procedure(s) Performed: 1. C3-4 ANTERIOR CERVICAL ARTHRODESIS 2. C4-5 ANTERIOR CERVICAL ARTHRODESIS 3. C3-4 AND C4-5 ANTERIOR INSTRUMENTATION 4. C3-4, C4-5 INSERTION OF BIOMECHANICAL DEVICE CAGE X2 USE OF IONM ALL MOTORS TESTED STABLE AT CLOSURE USE OF IO MICROSCOPE Implants: GLOBUS COALITION 12 MM 8MM 9MM [employer] Anesthesia: GETA Surgeon: Kevin Reed Concrete Boom Pump Operator #1: Aniceto Glaser (WAS PRESENT AND ASSISTED WITH ALL ASPECTS OF THE CASE FROM POSITIONIONG TO DRESSING PLACEMENT) Estimated Blood Loss (ml): 20 IV fluids (ml): 1,100 Urine output (ml): 0 Pathology: none sent Condition: stable Disposition: PACU Indications for Procedure: Ms. Mindy Fernandez, a 49-year-old female with significant cervical spondylosis and stenosis at C3-C5 levels, presenting with severe cervical pain (VAS 9/10), bilateral upper extremity radiculopathy, and progressive neurological deficits including left hand weakness and positive right-sided Beatty's sign, is scheduled for anterior cervical discectomy and fusion (ACDF) C3-C5. Her medical history is significant for diabetes mellitus, hypertension, hyperlipidemia, GERD, and asthma. After failing conservative management including physical therapy, medications ([place], Lyrica), and multiple injection therapies, surgical intervention was deemed medically necessary. Current medications include HYDROcodone/APAP 10-325mg TID PRN for pain, cyclobenzaprine 5mg BID PRN for muscle spasms, and continuation of her chronic medications. Patient has documented allergies to codeine, propoxyphene, and sulfamethoxazole/trimethoprim. Post-operative follow-up is scheduled for 2 weeks after surgery, with ongoing assessment of neurological status and wound healing. Pre-operative clearance has been obtained, and all surgical risks and benefits have been thoroughly discussed with the patient, who has provided informed consent. Description of Procedure: C3-5 ACDF The patient was seen and examined in the preoperative area. All preoperative protocols were followed. Informed consent was obtained, risks and benefits of the procedure were discussed at length. Risks including bleeding infection damage to the surrounding tissue and risk of reoperation were discussed with the patient. Risk of anesthesia up to and including was discussed with the patient. These are outlined in the risk review. They were willing to accept these risks and all the risks of surgery. The patient was given a weight-based dose of antibiotics in the form of 2 g Ancef. The patient was seen and evaluated by the anesthesia team who deemed them fit for surgery. The site was marked, the patient was willing to proceed with the procedure. The patient was transferred to the operative suite by the Department of anesthesia. They were then drifted off to sleep by the department anesthesia and GETA was performed. The patient tolerated this well. Finnegan catheter was placed by nursing staff, a-traumatically. Once confirmation of lines and ventilation the patient was transferred to a Supine Yong table very carefully. All bony prominences including wrists, elbows, axilla, chest, hips, and thighs, and feet were padded very well. Special attention was paid to the genitalia, and these were padded accordingly. SCDs were placed on bilateral lower extremities and were connected. Arms were well padded and placed at their side thumbs up. Once in position, again we confirmed good ventilation capabilities and that lines were running appropriately. The patients Cervical spine was then exposed. 1010s were placed outlining the incision site. Standard alcohol was used to clean the incision site and allowed to dry. C-arm was used to bio-alicia the patient and confirm level for incision which was marked with a skin marker. Operative briefing was performed with all teams and everyone in agreement to proceed. The patient was then prepped and draped in a normal sterile fashion. Timeout was then performed, and all parties agreed with the procedure to be performed. Transverse skin incision was then made on the right side of the patient's neck 3 cm and dissection taken down to the platysma which was split transversely. Sub platysma flap was made, and interval identified between SCM and medial structures. Omohyoid was visualized and protected. Blunt dissection taken down to the anterior cervical fascia which was identified. Blunt probe was then placed and lateral image taken which confirmed levels for operation. These leve ls were then marked with a bovi. Subperiosteal dissection of the longissimus muscles were then done over these levels identifying uncovertebral joints bilaterally. Retractor was then placed deep to these muscles and held in place with a bed arm. [place] pins were placed into C4 and C5 and gentle distraction taken out over the levels. Lolita rongeur used to remove disc material. Operating microscope brought in for visualization. Complete discectomy performed at this level with curette, rongure and pituitary. High speed ashish used to remove osteophytes anteriorly and posteriorly until PLL was identified. 6-0 up curette then used to identify the canal and resect the PLL. 2-0 and 3-0 Kerrison used then to remove PLL and disc herniation and performed b/l foraminotomies. Once good deco mpression was accomplished, meticulous hemostasis was performed. Sizers were then placed under lateral fluoroscopy until the desired height and lordosis. Cage was then selected, packed with autograft and allograft and placed under lateral imaging. Once in good position it was tested and stable. Motors run before and after cage placement were stable. The wound was irrigated, and autograft placed lateral to the cage anteriorly for fusion. [place] pin was then removed from C5 and bone wax placed in their void. [place] pin was then placed into C3. Gentle distraction was then taken out over the C3-4 levels. Lolita rongeur used to remove disc material. Operating microscope brought in for visualization. Complete discectomy performed at this level with curette, rongure and pituitary. High speed ashish used to remove osteophytes anteriorly and posteriorly until PLL was identified. 6-0 up curette then used to identify the canal and resect the PLL. 2-0 and 3-0 Kerrison used then to remove PLL and disc herniation and performed b/l foraminotomies. Once good decompression was accomplished, meticulous hemostasis was performed. Sizers were then placed under lateral fluoroscopy until the desired height and lordosis. Cage was then selected, packed with autograft and allograft and placed under lateral imaging. Once in good position it was tested and stable. Motors run before and after cage placement were stable. The wound was irrigated, and autograft placed lateral to the cage anteriorly for fusion. Anterior instrumentation was then done at these levels. 16 mm screws were placed through the anterior plate construct at each level after awl was passed through under lateral fluoroscopy. Screws all had a good bite. Locking mechanisms set. Final AP and lateral images taken confirmed good placement of hardware and good reduction and pentecostalism of height. The wound was then irrigated copiously with NSS. Surgicel placed deep in the wound. Layered closure then performed with 3-0 Vicryl in the platysma and subQ tissue. 4-0 Strata fix in the subcuticular tissue. The wound was then cleaned, and dried and skin glue placed. Once glue dried on, Optifoam was placed. The patient was then transferred back to their hospital bed a-traumatically. The drain continued to hold suction. They were placed in a soft collar. They were then awakened by the department of anesthesia having tolerated the procedure well without complications.
[2024-05-29] MEDS: HYDROmorphone 0.5 MG/0.5 ML SYRINGE IVP PRN (16:54)
[2024-05-29] MEDS: IV FLUID CONTINUATION 1,000 ML IV ONE (16:59)
[2024-05-29] MEDS: droPERidol 2.5 MG/ML VIAL IVP ONE (18:51)
[2024-05-29] MEDS: KETOROLAC 15 MG/ML 1 ML VIAL IVP SCH (18:53)
[2024-05-29 20:36] LABS: Glucose,Whole Blood 211 mg/dL (70-110)
[2024-05-29 21:02] VITALS: RESP 18
[2024-05-29] MEDS: PREGABALIN 75 MG CAP PO SCH (21:15)
[2024-05-29] MEDS: HYDROcodone/APAP 10-325MG 1 EACH TAB PO PRN (21:26)
[2024-05-30] MEDS: ACETAMINOPHEN TAB 325 MG TAB PO SCH (00:09)
[2024-05-30 06:23] LABS: Glucose,Whole Blood 171 mg/dL (70-110)
--- NOTE | 2024-05-30 07:36 | CT ---
EXAMINATION TYPE: CT cervical spine wo con DATE OF EXAM: 05/29/2024 COMPARISON: Prior CT cervical spine March 20, 2024 CLINICAL INDICATION: Female, 49 years old with history of s/p cervical fusion, S/P cervical fusion., pain TECHNIQUE: CT scan of the cervical spine is obtained without contrast, axial images are obtained, sa gittal and coronal reformatted images are also reviewed. CT DLP: 679 mGycm. Automated Exposure Control for Dose Reduction was Utilized. Contrast: , patient injected with mL of ., (none if empty) FINDINGS: Cervical spine is visualized in its entirety from C1 through upper thoracic levels, there a re new metallic disc spacers and anterior fusion devices at C3-C4 and C4-C5 levels. Hardware position appears satisfactory. There is evidence of recent surgery with ill-defined fluid and air throughout the tissues of the right neck extending to the prevertebral region in the upper mediastinum. Alignmen t is stable and satisfactory. Vertebral body heights and disc space heights are maintained above and below surgical levels. IMPRESSION: Postsurgical changes C3-C5 levels. Hardware position is satisfactory. Alignment is satis factory and stable. No obvious complication related to recent surgery. [facility], , 05/30/2024 7:34 AM
[2024-05-30] MEDS: SENNOSIDES-DOCUSATE SODIUM 1 EACH TAB PO SCH (08:07)
[2024-05-30 08:26] VITALS: BP 162/50; PULSE 78; TEMP 97.7
--- NOTE | 2024-05-30 09:54 | P.DS ---
Providers Date of admission: 05/29/2024 Expected date of discharge: 05/30/24 Attending physician: Kevin Reed DO Consults: 05/29/24 18:02 Consult Physician Routine Consulting Provider: Michael Patterson Consult Reason/Comments: Medical Management Do you want consulting provider notified?: Yes Primary care physician: [facility] Course: Date of admission: 05/29/2024 Date of discharge: 05/30/2024 Admission diagnosis: C3-C5 spondylosis with stenosis; left upper extremity radiculopathy and weakness Discharge diagnosis: Same Attending physician: Dr. Reed Surgical procedures: C3-C5 ACDF Brief history: Patient is a 49-year-old female with a history of C3-5 spondylosis with stenosis; left upper extremity radiculopathy; left upper extremity weakness. At this point patient has failed conservative treatment measures and has opted to proceed with a elective C3-C5 ACDF. Hospital course: Details of patient's surgery can be found in operative report. Patient tolerated the procedure well and was subsequently transported to orthopedic floor. Patient's orthopeidc and medical care was provided daily. Patient had daily laboratory tests performed for evaluation of overall blood counts. Patient had daily physical therapy to include strengthening range of motion as well as education with walker ambulation. Patient was noted to have a relatively uneventful postoperative course. Patient reported satisfactory pain control with oral pain medications by postoperative day 1. Patient showed satisfactory progress with physical therapy. Patient moved steadily through the program and had no difficulty meeting the goals by postoperative day 1. Given patient's otherwise satisfactory course and having met physical therapy goals, plan is to discharge patient home on postoperative day 1. Discharge condition/disposition: Patient will be discharged home in stable condition. Discharge medications: Instructions are given on resumption of patient's normal daily medications per primary care recommendation, in addition patient will be prescribed Flexeril; senna; Duricef. Resume [place] and Lyrica at home. Spine Discharge and Recovery Instructions Wear soft c-collar on at all times. Only okay to take off to shower. Keep dressing on for 5 days postop. Okay to remove dressing on 06/03/2024. Once dressing is removed, it is okay to shower directly over incision Date of Surgery: 05/29/2024 Diagnosis: 1.C3-5 spondylosis with stenosis 2.Left upper extremity radiculopathy 3.Left upper extremity weakness Procedure: C3-C5 ACDF Medications: See medication list All medication refills should be obtained through your primary care doctor or your clinic spine surgeon. Please discuss prescription refills at your follow up appointment. Do not call the hospital for medication refills. Dressing: Leave your dressing in place for a total of 5 days post operatively. Then you may remove your dressing and leave open to air. Keep the area clean and if not able to keep area clean, then cover with sterile gauze and tape. Showering: You may shower 3 days after your procedure allowing soap and water to run over incision. Do not scrub. Do not soak. Blot dry. Follow up: Please confirm a follow up appointment with your surgeon 3 weeks post operatively. Please make an appointment to follow up with your PCP in 1-2 weeks after surgery for evaluation '3 phase, 3-week plan' POST OP WEEKS 1-3 1. Lifting/carrying/pushing/pulling limited to less than 5 pounds. 2. Do not sit for longer than 15 minutes at one time. Get up and walk around. Prolonged sitting is NOT advised. If you lay down, see if you can tolerate laying down on you front (belly side) 3. Walk for periods of 15 minutes = 1 mile but no longer; do it multiple times times each day. 4. Ice your low back after activity. POST OP WEEKS 3-6 1. Lifting limited to less than 20 pounds. 2. Do not sit for longer than 30 minutes at a time. Frequently change positions. Use a sit-to stand workstation or take frequent breaks from sitting if you have returned to work. 3. Walk for 30 minutes each day. If possible, do these three or more times a day POST OP WEEKS 6+ At your 6-week appointment we will give you a physical therapy referral to focus on a core stabilization and strengthening program. You should also work on leg & buttock strengthening, hamstring & quadriceps stretching, and continue a low impact aerobic activity program such as swimming, walking, or riding a stationary bicycle. During the initial 6 weeks after your surgery, you are at the highest risk of re-injuring your spine. You should generally avoid BLT's (bending, lifting and twisting combination motions) and follow the above guidelines to reduce the chance of reinjury. You can anticipate post op appointments in our office at approximately 3 weeks and 6 weeks after your surgery. INCISION CARE: If your incision is not draining you do NOT need to cover it with a dressing. Keep your incision clean, dry and intact. In most cases, we apply skin glue, akil or sutures to the incision at the time of surgery. This will be like a crust or have the appearance of a scab and will fall off in time on its own. The stitches or akil need to be removed at 3 weeks post op appointment. You may begin to shower 3 days after surgery (this allows the glue to vizcarra well). However, please avoid scrubbing the incision site or peeling off any of the skin glue. This will ensure optimal healing of your incision. Also, during this time avoid soaking the incision area in water - this includes swimming pools, hot tubs or baths. No ointments, lotions or oils on the incision until your surgeon allows. Leave akil, sutures or glue in place. Neurological dysfunction that comes on suddenly can also be a sign of a stroke. Below some common symptoms of a stroke are listed: B - balance difficulty such as sudden onset walking or leaning to one side - NEW E - eye problem such as sudden double vision or trouble seeing on one side - NEW F - Facial weakness or numbness on one side - NEW A - Arm or leg weakness or numbness on one side - NEW S - Slurred speech or difficulty with word finding - NEW T - Time is BRAIN! Call 911 as soon as you recognize these symptoms Diet: Consume a regular diet rich in vegetables and lean protein such as chicken or fish. You should consume in a ratio of approximately 20% fats|40% carbohydrates|40%protein. Vegetables, sweet potatoes, brown rice or quinoa are examples of good carbohydrates. Chips, white bread, cookies and sweets/sugar are examples of bad carbohydrates. Limit your bad carbs, go wild with good carbs. "Life's Simple 7" Guidelines as per [place] [employer] These will help you reclaim your life after surgery and driver helper in your recovery, keeping in mind your restrictions. (1) Get Active. Physical activity can help people lose weight, control high blood pressure and cholesterol, feel emotionally better, and sleep better. (2) Control Cholesterol. Avoid a diet high in saturated fat, trans fat, & cholesterol. Limit whole milk & cream, ice cream, butter, egg yolks, processed meats (like sausage and hot dogs), and fatty meats. Choose healthy foods that are low in saturated fat, trans fat and cholesterol which include: Fruits and vegetables, fiber rich grain products (like whole grain pasta and brown rice), lean meat such as chicken, fish, nuts, seeds, and legumes. (3) Eat Better. Eat small portions. Shop at the grocery with a list and do not stray from it. Tips for a healthy diet include: Limit sodium intake to less than 1500mg daily, avoid prepackaged, processed, and fast foods, choose a diet rich in fruits, vegetables, and whole grain, high fiber foods, and limit saturated & cholesterol in your diet. (4) Manage Blood Pressure. If you have high blood pressure, you should have a cuff at home so that you can check your blood pressure regularly. Be sure you have a good cuff. An arm one is generally better than a wrist one. Bring the cuff to a doctor's appointment to validate that the measurements that your cuff are taking are accurate. Take your blood pressure twice daily when you are sitting down and relaxing. Record the numbers in a log and bring this log with you to your doctors' appointments. (5) Lose Weight if your BMI is above 25. A healthy BMI is between 19-25. To calculate Your BMI, you may use a Standard BMI Calculator on the NIH BMI website: <www.nhlbi.nih.gov/guidelines/obesity/BMI/bmicalc.htm>. Weigh oneself daily. If you are overweight, set a goal to lose weight. A pound a week loss if needed is a good target. (6) Reduce Blood Sugar. Limit foods and liquids with "added sugars." (Added sugars include sucrose, fructose, glucose, maltose, dextrose, high fructose corn syrup, corn syrup, concentrated fruit juice and honey). (7) Stop Smoking. If you smoke, quitting smoking is one of the best things that you can do for your health. Smoking increases your risk of heart attack, stroke, and peripheral vascular disease, which is a build-up of plaque in your arteries. Please discard all the cigarettes and lighters in your house. Have a plan for what you will do when you have the urge to smoke. Direct and second- hand smoke shortens your life as well as the lives of your family, friends and others around you. For your health and the health of those around you, please consider quitting! Proper Bending Body Mechanics: Maintain a wide stance with one foot slightly in front of the other. Keep your back straight. Bend utilizing the strength in your hips and knees. Do not bend at the waist. Maintain the lifted object at your waist-level close to your body. Avoid lifting weight that causes immediately pain or pain anywhere in the body afterwards. Smoking/Nicotine If there was ever one thing that you could do to increase your overall health, decrease your risk of cardiovascular problems by about 39% the second you make the choice, it is to STOP SMOKING. Your body's most instant gratification is the second you stop smoking. We have all heard the studies, read the articles but it is true, smoking is extremely bad for your overall health, and moreover it is detrimental to your bone health. Nicotine, IN ANY FORM, kills bone cells, prevents your body from healing fractures, and significantly prolongs healing after surgery. In spine surgery specifically, it increases your risk of not healing your bones to create a fusion and increases your risk of having a revision surgery due to this up to 60%. I know it is hard. I know it feels impossible. But there are ways. Take control of your life. We are here to help you through it. And when you are ready, ask us and we can direct you to help if you desire. Use the START Plan to Quit Smoking (please visit the Helpguide.org website listed below for more information): S = Set a quit date. Choose a date within the next 2 weeks, so you have enough time to prepare without losing your motivation to quit. If you mainly smoke at work, quit on the weekend, so you have a few days to adjust to the change. T = Tell family, friends, and co-workers that you plan to quit. Let your friends and family in on your plan to quit smoking and tell them you need their support and encouragement to stop. Look for a quit josr who wants to stop smoking as well. You can help each other get through the rough times. A = Anticipate and plan for the challenges you'll face while quitting. Most people who begin smoking again do so within the first 3 months. You can help yourself make it through by preparing ahead for common challenges, such as nicotine withdrawal and cigarette cravings. R = Remove cigarettes and other tobacco products from your home, car, and work. Throw away all your cigarettes (no emergency pack!), lighters, ashtrays, and matches. Wash your clothes and freshen up anything that smells like smoke. Shampoo your car, clean your drapes and carpet, and steam your furniture. T = Talk to your doctor about getting help to quit. Your doctor can prescribe medication to help with withdrawal and suggest other alternatives. If you can't see a doctor, you can get many products over the counter at your local pharmacy or grocery store, including the nicotine patch, nicotine lozenges, and nicotine gum. Resources for Quitting Smoking: <https://www.[place].gov/documents/[facility]/Quit_Tobacco_Resources_for_patient s_313480_7.pdf> Supplementation: Take recommended dosages of Vitamin D and Calcium to help fortify your bones and help them to heal. See your health maintenance packet for dosages and recom mended levels. DVT/VTE prophylaxis: You will be given compression stockings from the hospital. Wear these daily for the first two weeks after surgery. You may take them off at night. You may be prescribed a medication to help thin your blood. Take this as directed. If you are not prescribed this medication, early and frequent ambulation has been shown to be the best prophylaxis to deep vein thrombosis and sequelae related to this event. Assessment: 1.C3-5 spondylosis with stenosis 2.Left upper extremity radiculopathy 3.Left upper extremity weakness Procedures: C3-C5 ACDF Patient Condition at Discharge: Good Plan - Discharge Summary Discharge Rx Participant: Yes New Discharge Prescriptions: New cefaDROXiL [Duricef] 500 mg PO Q12HR 5 Days #10 cap Cyclobenzaprine [Flexeril] 10 mg PO TID #21 tab Sennosides/Docusate Sodium [Senna Plus 8.6-50 mg Softgel] 1 each PO DAILY #20 capsule Continue Pregabalin [Lyrica] 150 mg PO TID HYDROcodone/APAP 10-325MG [[place] 10-325] 1 tab PO TID PRN PRN Reason: Pain No Action Atorvastatin [Lipitor] 80 mg PO HS Meloxicam [Mobic] 15 mg PO HS Montelukast [Singulair] 10 mg PO HS Valsartan [Diovan] 320 mg PO QAM Isosorbide Mononitrate ER [Imdur] 30 mg PO QAM Insulin Detemir [Levemir Flexpen] 25 units SQ HS Dulaglutide [Trulicity] 0.75 mg SQ FR Cyclobenzaprine [Flexeril] 5 mg PO BID PRN PRN Reason: Pain Linaclotide [Linzess] 145 mcg PO DAILY Pantoprazole [Protonix] 40 mg PO QAM Pioglitazone [Actos] 45 mg PO DAILY DULoxetine HCL [Cymbalta] 60 mg PO DAILY Fluticasone/Umeclidin/Vilanter [Trelegy Ellipta 200-62.5-25] 1 puff INHALATION QAM Rimegepant Sulfate [Nurtec Odt] 75 mg PO DIRECTED PRN PRN Reason: Migraine Headache Estrogen,Con/M-Progest Acet [Prempro 0.625-2.5 mg Tablet] 1 each PO DAILY Discharge Medication List Atorvastatin [Lipitor] 80 mg PO HS 04/27/20 [History] Meloxicam [Mobic] 15 mg PO HS 04/27/20 [History] Pregabalin [Lyrica] 150 mg PO TID 04/27/20 [History] Montelukast [Singulair] 10 mg PO HS 11/10/21 [History] Pantoprazole [Protonix] 40 mg PO QAM 01/11/22 [History] Pioglitazone [Actos] 45 mg PO DAILY 03/01/22 [History] DULoxetine HCL [Cymbalta] 60 mg PO DAILY 01/25/23 [History] Fluticasone/Umeclidin/Vilanter [Trelegy Ellipta 200-62.5-25] 1 puff INHALATION QAM 01/25/23 [History] Insulin Detemir [Levemir Flexpen] 25 units SQ HS 01/25/23 [History] Isosorbide Mononitrate ER [Imdur] 30 mg PO QAM 01/25/23 [History] Rimegepant Sulfate [Nurtec Odt] 75 mg PO DIRECTED PRN 01/25/23 [History] Valsartan [Diovan] 320 mg PO QAM 01/25/23 [History] Dulaglutide [Trulicity] 0.75 mg SQ FR 10/16/23 [History] Cyclobenzaprine [Flexeril] 5 mg PO BID PRN 05/23/24 [History] Estrogen,Con/M-Progest Acet [Prempro 0.625-2.5 mg Tablet] 1 each PO DAILY 05/23/24 [History] HYDROcodone/APAP 10-325MG [[place] 10-325] 1 tab PO TID PRN 05/23/24 [History] Linaclotide [Linzess] 145 mcg PO DAILY 05/23/24 [History] Cyclobenzaprine [Flexeril] 10 mg PO TID #21 tab 05/30/24 [Rx] Sennosides/Docusate Sodium [Senna Plus 8.6-50 mg Softgel] 1 each PO DAILY #20 capsule 05/30/24 [Rx] cefaDROXiL [Duricef] 500 mg PO Q12HR 5 Days #10 cap 05/30/24 [Rx] Follow up Appointment(s)/Referral(s): Kevin Reed DO [Doctor of Osteopathic Medicine] - 2 Weeks Patient Instructions/Handouts: Anterior Cervical Discectomy (GEN) Activity/Diet/Wound Care/Special Instructions: Spine Discharge and Recovery Instructions Wear soft c-collar on at all times. Only okay to take off to shower. Keep dressing on for 5 days postop. Okay to remove dressing on 06/03/2024. Once dressing is removed, it is okay to shower directly over incision Date of Surgery: 05/29/2024 Diagnosis: 1.C3-5 spondylosis with stenosis 2.Left upper extremity radiculopathy 3.Left upper extremity weakness Procedure: C3-C5 ACDF Medications: See medication list All medication refills should be obtained through your primary care doctor or your clinic spine surgeon. Please discuss prescription refills at your follow up appointment. Do not call the hospital for medication refills. Dressing: Leave your dressing in place for a total of 5 days post operatively. Then you may remove your dressing and leave open to air. Keep the area clean and if not able to keep area clean, then cover with sterile gauze and tape. Showering: You may shower 3 days after your procedure allowing soap and water to run over incision. Do not scrub. Do not soak. Blot dry. Follow up: Please confirm a follow up appointment with your surgeon 3 weeks post operatively. Please make an appointment to follow up with your PCP in 1-2 weeks after surgery for evaluation '3 phase, 3-week plan' POST OP WEEKS 1-3 1. Lifting/carrying/pushing/pulling limited to less than 5 pounds. 2. Do not sit for longer than 15 minutes at one time. Get up and walk around. Prolonged sitting is NOT advised. If you lay down, see if you can tolerate laying down on you front (belly side) 3. Walk for periods of 15 minutes = 1 mile but no longer; do it multiple times times each day. 4. Ice your low back after activity. POST OP WEEKS 3-6 1. Lifting limited to less than 20 pounds. 2. Do not sit for longer than 30 minutes at a time. Frequently change positions. Use a sit-to stand workstation or take frequent breaks from sitting if you have returned to work. 3. Walk for 30 minutes each day. If possible, do these three or more times a day POST OP WEEKS 6+ At your 6-week appointment we will give you a physical therapy referral to focus on a core stabilization and strengthening program. You should also work on leg & buttock strengthening, hamstring & quadriceps stretching, and continue a low impact aerobic activity program such as swimming, walking, or riding a stationary bicycle. During the initial 6 weeks after your surgery, you are at the highest risk of re-injuring your spine. You should generally avoid BLT's (bending, lifting and twisting combination motions) and follow the above guidelines to reduce the chance of reinjury. You can anticipate post op appointments in our office at approximately 3 weeks and 6 weeks after your surgery. INCISION CARE: If your incision is not draining you do NOT need to cover it with a dressing. Keep your incision clean, dry and intact. In most cases, we apply skin glue, akil or sutures to the incision at the time of surgery. This will be like a crust or have the appearance of a scab and will fall off in time on its own. The stitches or akil need to be removed at 3 weeks post op appointment. You may begin to shower 3 days after surgery (this allows the glue to vizcarra well). However, please avoid scrubbing the incision site or peeling off any of the skin glue. This will ensure optimal healing of your incision. Also, during this time avoid soaking the incision area in water - this includes swimming pools, hot tubs or baths. No ointments, lotions or oils on the incision until your surgeon allows. Leave akil, sutures or glue in place. Neurological dysfunction that comes on suddenly can also be a sign of a stroke. Below some common symptoms of a stroke are listed: B - balance difficulty such as sudden onset walking or leaning to one side - NEW E - eye problem such as sudden double vision or trouble seeing on one side - NEW F - Facial weakness or numbness on one side - NEW A - Arm or leg weakness or numbness on one side - NEW S - Slurred speech or difficulty with word finding - NEW T - Time is BRAIN! Call 911 as soon as you recognize these symptoms Diet: Consume a regular diet rich in vegetables and lean protein such as chicken or fish. You should consume in a ratio of approximately 20% fats|40% carbohydrates|40%protein. Vegetables, sweet potatoes, brown rice or quinoa are examples of good carbohydrates. Chips, white bread, cookies and sweets/sugar are examples of bad carbohydrates. Limit your bad carbs, go wild with good carbs. "Life's Simple 7" Guidelines as per [place] [employer] These will help you reclaim your life after surgery and driver helper in your recovery, keeping in mind your restrictions. (1) Get Active. Physical activity can help people lose weight, control high blood pressure and cholesterol, feel emotionally better, and sleep better. (2) Control Cholesterol. Avoid a diet high in saturated fat, trans fat, & cholesterol. Limit whole milk & cream, ice cream, butter, egg yolks, processed meats (like sausage and hot dogs), and fatty meats. Choose healthy foods that are low in saturated fat, trans fat and cholesterol which include: Fruits and vegetables, fiber rich grain products (like whole grain pasta and brown rice), lean meat such as chicken, fish, nuts, seeds, and legumes. (3) Eat Better. Eat small portions. Shop at the grocery with a list and do not stray from it. Tips for a healthy diet include: Limit sodium intake to less than 1500mg daily, avoid prepackaged, processed, and fast foods, choose a diet rich in fruits, vegetables, and whole grain, high fiber foods, and limit saturated & cholesterol in your diet. (4) Manage Blood Pressure. If you have high blood pressure, you should have a cuff at home so that you can check your blood pressure regularly. Be sure you have a good cuff. An arm one is generally better than a wrist one. Bring the cuff to a doctor's appointment to validate that the measurements that your cuff are taking are accurate. Take your blood pressure twice daily when you are sitting down and relaxing. Record the numbers in a log and bring this log with you to your doctors' appointments. (5) Lose Weight if your BMI is above 25. A healthy BMI is between 19-25. To calculate Your BMI, you may use a Standard BMI Calculator on the NIH BMI website: <www.nhlbi.nih.gov/guidelines/obesity/BMI/bmicalc.htm>. Weigh oneself daily. If you are overweight, set a goal to lose weight. A pound a week loss if needed is a good target. (6) Reduce Blood Sugar. Limit foods and liquids with "added sugars." (Added sugars include sucrose, fructose, glucose, maltose, dextrose, high fructose corn syrup, corn syrup, concentrated fruit juice and honey). (7) Stop Smoking. If you smoke, quitting smoking is one of the best things that you can do for your health. Smoking increases your risk of heart attack, stroke, and peripheral vascular disease, which is a build-up of plaque in your arteries. Please discard all the cigarettes and lighters in your house. Have a plan for what you will do when you have the urge to smoke. Direct and second- hand smoke shortens your life as well as the lives of your family, friends and others around you. For your health and the health of those around you, please consider quitting! Proper Bending Body Mechanics: Maintain a wide stance with one foot slightly in front of the other. Keep your back straight. Bend utilizing the strength in your hips and knees. Do not bend at the waist. Maintain the lifted object at your waist-level close to your body. Avoid lifting weight that causes immediately pain or pain anywhere in the body afterwards. Smoking/Nicotine If there was ever one thing that you could do to increase your overall health, decrease your risk of cardiovascular problems by about 39% the second you make the choice, it is to STOP SMOKING. Your body's most instant gratification is the second you stop smoking. We have all heard the studies, read the articles but it is true, smoking is extremely bad for your overall health, and moreover it is detrimental to your bone health. Nicotine, IN ANY FORM, kills bone cells, prevents your body from healing fractures, and significantly prolongs healing after surgery. In spine surgery specifically, it increases your risk of not healing your bones to create a fusion and increases your risk of having a revision surgery due to this up to 60%. I know it is hard. I know it feels impossible. But there are ways. Take control of your life. We are here to help you through it. And when you are ready, ask us and we can direct you to help if you desire. Use the START Plan to Quit Smoking (please visit the Helpguide.org website listed below for more information): S = Set a quit date. Choose a date within the next 2 weeks, so you have enough time to prepare without losing your motivation to quit. If you mainly smoke at work, quit on the weekend, so you have a few days to adjust to the change. T = Tell family, friends, and co-workers that you plan to quit. Let your friends and family in on your plan to quit smoking and tell them you need their support and encouragement to stop. Look for a quit josr who wants to stop smoking as well. You can help each other get through the rough times. A = Anticipate and plan for the challenges you'll face while quitting. Most people who begin smoking again do so within the first 3 months. You can help yourself make it through by preparing ahead for common challenges, such as nicotine withdrawal and cigarette cravings. R = Remove cigarettes and other tobacco products from your home, car, and work. Throw away all your cigarettes (no emergency pack!), lighters, ashtrays, and matches. Wash your clothes and freshen up anything that smells like smoke. Shampoo your car, clean your drapes and carpet, and steam your furniture. T = Talk to your doctor about getting help to quit. Your doctor can prescribe medication to help with withdrawal and suggest other alternatives. If you can't see a doctor, you can get many products over the counter at your local pharmacy or grocery store, including the nicotine patch, nicotine lozenges, and nicotine gum. Resources for Quitting Smoking: <https://www.[place].gov/documents/[facility]/Quit_Tobacco_Resources_for_patients_313 480_7.pdf> Supplementation: Take recommended dosages of Vitamin D and Calcium to help fortify your bones and help them to heal. See your health maintenance packet for dosages and recommended levels. DVT/VTE prophylaxis: You will be given compression stockings from the hospital. Wear these daily for the first two weeks after surgery. You may take them off at night. You may be prescribed a medication to help thin your blood. Take this as directed. If you are not prescribed this medication, early and frequent ambulation has been shown to be the best prophylaxis to deep vein thrombosis and sequelae related to this event. Discharge Disposition: HOME SELF-CARE
--- NOTE | 2024-05-30 10:06 | P.PN ---
Subjective Progress Note Date: 05/30/24 Principal diagnosis: 1.C3-5 spondylosis with stenosis 2.Left upper extremity radiculopathy 3.Left upper extremity weakness Patient was seen at bedside this morning sitting up in chair with soft c-collar in place over cervical spine as well as dressing in place over anterior cervical spine. Patient says pain is well-controlled. Patient does note improvement in symptoms especially in regards to numbness and tingling down the right upper extremity. Patient says she did do well with therapy and got up and walked around the room and in the hallway. She says she has been urinating without issue since surgery. Patient says she is looking forward to going home. Patient denies any other issues at this time. Objective - Vital Signs Vital signs: Vital Signs Temp 97.7 F 05/30/24 08:00 Pulse 78 05/30/24 08:00 Resp 18 05/30/24 08:00 BP 162/50 05/30/24 08:00 Pulse Ox 98 05/30/24 08:00 FiO2 Intake & Output 05/29/24 05/30/24 05/30/24 18:59 06:59 18:59 Intake Total 2200 Output Total 20 Balance 2180 Weight 107.4 kg Intake: IV 2200 Output: Estimated Blood Loss 20 Other: Voiding Method Toilet # Voids 4 - Exam Inspection: Soft c-collar in place over cervical spine. Optifoam dressing in place over the anterior cervical spine. Dressing appears to be clean, dry contact incision is healing well. Negative for any active drainage. Some swelling present. Sensation: There is somewhat of a dermatomal deficit along C3-C5 bilaterally in the upper extremities. Sensation is equal, symmetric, by intact throughout the rest of the upper and lower extremities on exam. Palpation: There is some generalized tenderness to palpation near the incision on the anterior cervical spine. Nontender on rest of exam. Range of motion: Patient does have similar range of motion of bilateral shoulders on exam secondary to referred stiffness and pain in the neck. Full range of motion throughout rest of joints in bilateral upper extremities and on exam in bilateral lower extremities. Motor: 4/5 in all major motor groups in bilateral upper extremities. 4+/5 in all major motor was in bilateral lower extremities Neurovascular: Radial pulse intact, 2+ bilaterally. Cap refill under 3 seconds in digits of upper extremities. Special test: Negative Vivian bilaterally. Negative clonus bilaterally. Negative Lee bilaterally. - Labs Labs: Abnormal Lab Results - Last 24 Hours (Table) 05/29/24 05/29/24 05/29/24 Range/Units 13:48 15:49 16:46 POC Glucose (mg/dL) 228 H 143 H 153 H (70-110) mg/dL 05/29/24 05/30/24 Range/Units 20:35 06:22 POC Glucose (mg/dL) 211 H 171 H (70-110) mg/dL Assessment and Plan Assessment: 1.C3-5 spondylosis with stenosis 2.Left upper extremity radiculopathy 3.Left upper extremity weakness Postop day 1 status post: C3-C5 ACDF Plan: 1.C3-5 spondylosis with stenosis;Left upper extremity radiculopathy;Left upper extremity weakness -C3-C5 ACDF surgery performed yesterday, , 05/29/2024. Patient stable bedside this morning. Soft c-collar and dressing in place over anterior cervical spine. Pain is under well control. Patient did do well with therapy this morning. Discharge home today with home care. 2. Appreciate medical management 3. Pain management -[place]; Lyrica; Flexeril 4. DVT prophylaxis -mechanical 5. GI prophylaxis -senna 6. PT/OT -weightbearing as tolerated. Soft c-collar on at all times 7. Encourage incentive spirometer use 8. Discharge planning -discharge home today with home care Time with Patient: Less than 30
[2024-05-30 11:13] LABS: Glucose,Whole Blood 310 mg/dL (70-110)
== END 2024-05-30 12:13 | disposition home or self-care (01) ==
LOC: OR 13:10 → 4SSUR 16:29 → OR 05-30 12:13
PROVIDERS: ATTEND Orthopaedic Surgery
DX: M47.22 Other spondylosis with radiculopathy, cervical region (principal); M50.11 Cervical disc disorder with radiculopathy, high cervical region; M48.02 Spinal stenosis, cervical region; I10 Essential (primary) hypertension; E11.9 Type 2 diabetes mellitus without complications; E78.5 Hyperlipidemia, unspecified; K21.9 Gastro-esophageal reflux disease without esophagitis; J45.909 Unspecified asthma, uncomplicated; K76.0 Fatty (change of) liver, not elsewhere classified; Z91.89 Other specified personal risk factors, not elsewhere classified; Z79.890 Hormone replacement therapy; Z79.4 Long term (current) use of insulin; Z79.85 Long-term (current) use of injectable non-insulin antidiabetic drugs; Z79.84 Long term (current) use of oral hypoglycemic drugs; Z79.1 Long term (current) use of non-steroidal anti-inflammatories (NSAID); Z79.51 Long term (current) use of inhaled steroids; Z79.899 Other long term (current) drug therapy; Z87.891 Personal history of nicotine dependence; Z88.5 Allergy status to narcotic agent; Z88.8 Allergy status to other drugs, medicaments and biological substances; Z88.2 Allergy status to sulfonamides; Z88.1 Allergy status to other antibiotic agents; X58.XXXA Exposure to other specified factors, initial encounter; Y93.9 Activity, unspecified; Y92.9 Unspecified place or not applicable; Y99.0 Civilian activity done for income or pay
CPT/HCPCS: 22551; 22552; 22853 ×2; 20930; 20936; 22845; 97161; 72040; 72125; L0120; J0690 ×2; J2405; J1885 ×2; J1171